=== PATIENT | female | born 1965 | race Hispanic/Latino ===

== ENCOUNTER 2019-11-21 17:45 | Inpatient (IN) | payer MEDICAID ==
[~2019-11-21] VITALS: Ht 162.6 cm; Wt 83.1 kg
[2019-11-21 18:14] LABS: BASOPHILS % (AUTO) 0.5 % (0.0-5.0); EOSINOPHILS % (AUTO) 5.7 % (0.0-8.0); LYMPHOCYTES % (AUTO) 35.6 % (21.0-51.0); MEAN CORPUSCULAR VOLUME 80.2 fL (79-99); MONOCYTES % (AUTO) 6.7 % (3.0-13.0); NEUTROPHILS % (AUTO) 51.2 % (40.0-77.0); PLATELET COUNT (AUTO) 439 K/uL (130-400); RED BLOOD CELL COUNT(AUTO) 2.58 MIL/uL (4.00-5.50); RED CELL DISTRIBUTION WIDTH 16.3 % (11.0-15.5); WHITE BLOOD COUNT (AUTO) 9.3 K/uL (4.8-10.8)
[2019-11-21 18:24] LABS: HEMATOCRIT 20.7 % (36-48)
[2019-11-21 18:29] LABS: CREATININE 6.2 mg/dL (0.5-1.5); POTASSIUM 5.6 mmol/L (3.5-5.1)
[2019-11-21 18:30] LABS: INR 1.06 (0.85-1.15); PARTIAL THROMBOPLASTIN TIME 24.7 SEC (26.3-35.5); PROTHROMBIN TIME 11.4 SEC (9.6-11.6)
[2019-11-21 18:34] LABS: ALBUMIN 3.8 g/dL (3.5-5.0); BILIRUBIN,TOTAL 0.2 mg/dL (0.2-1.0); TOTAL PROTEIN, SERUM 7.8 g/dL (6.0-8.3)
[2019-11-21] MEDS ORDERED: ACETAMINOPHEN 325 MG TAB PO PRN ×2 (20:00)
[2019-11-21] MEDS ORDERED: MORPHINE SULFATE 2 MG/ML 1ML SYG IV PRN (20:00)
[2019-11-21] MEDS ORDERED: ZOLPIDEM TARTRATE 5 MG TAB PO PRN (20:00)
[2019-11-21] MEDS ORDERED: SODIUM BICARB 8.4% 50ML SYRINGE IVP SCH ×2 (20:00→21:00)
[2019-11-21] MEDS ORDERED: BENZONATATE 100 MG CAPSULE PO PRN (20:00)
[2019-11-21] MEDS ORDERED: DEXTROSE 50%-WATER 50 ML DISP.SYRIN IV ONE (20:00)
[2019-11-21] MEDS ORDERED: DIPHENHYDRAMINE HCL 25 MG CAPSULE PO PRN (20:00)
[2019-11-21] MEDS ORDERED: MAG HYDROX/AL HYDROX/SIMETH ES 30 ML SUSP UDCUP PO PRN (20:00)
[2019-11-21] MEDS ORDERED: LIDOCAINE HCL 2% VISCOUS 30 ML, MAG HYDROX/AL HYDROX/SIMETH 30 ML, BELLADONNA-PHENOBARB... PO PRN ×3 (20:00)
[2019-11-21] MEDS ORDERED: MAG HYDROX/AL HYDROX/SIMETH 30 ML, LIDOCAINE HCL 2% VISCOUS 30 ML, DIPHENHYDRAMINE HCL ... PO PRN ×3 (20:00)
[2019-11-21] MEDS ORDERED: LACTULOSE 20 GM/30 ML UDCUP PO PRN (20:00)
[2019-11-21] MEDS ORDERED: DiphenhydrAMINE HCL 50 MG/ML VIAL IV PRN (20:00)
[2019-11-21] MEDS ORDERED: GUAIFENESIN-DM 200/20 MG 10 ML PO PRN (20:00)
[2019-11-21] MEDS ORDERED: NITROGLYCERIN 0.4 MG SL TAB SL PRN (20:00)
[2019-11-21] MEDS ORDERED: MORPHINE SULFATE 4 MG/1ML SYG IV PRN (20:00)
[2019-11-21] MEDS ORDERED: INSULIN HUMULIN R 100 UNIT/ML 3ML ONE (20:01)
[2019-11-21 20:53] LABS: % IRON SATURATION 4.4 % (22-44)
[2019-11-21 20:55] LABS: HEMOGLOBIN A1C 5.7 % (4.0-6.0)
[2019-11-21] MEDS: INSULIN LISPRO 100 UNIT/ML 3ML SQ SCH (21:00)
[2019-11-21] MEDS: SODIUM CHLORIDE 0.9% 1000ML 1,000 ML IV SCH (21:30)
[2019-11-21] MEDS ORDERED: SODIUM BICARB 50MEQ 50ML VIAL ONE (23:28)
[2019-11-22 00:15] VITALS: BP 190/87
[2019-11-22 00:49] LABS: CREATININE 5.8 mg/dL (0.5-1.5); POTASSIUM 5.5 mmol/L (3.5-5.1)
[2019-11-22] MEDS ORDERED: METF-446 PO (03:19)
[2019-11-22] MEDS ORDERED: INSLAN SQ (03:19)
[2019-11-22] MEDS ORDERED: LISI10TA7 PO (03:19)
[2019-11-22] MEDS ORDERED: PRAV20TA PO (03:19)
[2019-11-22] MEDS ORDERED: METO25TA6 PO (03:19)
[2019-11-22] MEDS ORDERED: AMLO10TA4 PO (03:19)
[2019-11-22 04:10] LABS: BASOPHILS % (AUTO) 0.4 % (0.0-5.0); EOSINOPHILS % (AUTO) 4.6 % (0.0-8.0); HEMATOCRIT 25.5 % (36-48); LYMPHOCYTES % (AUTO) 27.9 % (21.0-51.0); MEAN CORPUSCULAR HEMOGLOBIN 26.4 pg (27.0-33.0); MEAN CORPUSCULAR HGB CONC 32.2 g/dL (32.0-36.0); MONOCYTES % (AUTO) 5.7 % (3.0-13.0); NEUTROPHILS % (AUTO) 61.2 % (40.0-77.0); PLATELET COUNT (AUTO) 356 K/uL (130-400); RED BLOOD CELL COUNT(AUTO) 3.11 MIL/uL (4.00-5.50); RED CELL DISTRIBUTION WIDTH 16.5 % (11.0-15.5); WHITE BLOOD COUNT (AUTO) 8.2 K/uL (4.8-10.8)
[2019-11-22 04:30] VITALS: BP 164/67
[2019-11-22 04:32] LABS: ALBUMIN 3.2 g/dL (3.5-5.0); BILIRUBIN,TOTAL 0.3 mg/dL (0.2-1.0); CREATININE 5.8 mg/dL (0.5-1.5); MAGNESIUM 1.9 mg/dL (1.80-2.40); PHOSPHORUS 4.6 mg/dL (2.5-4.9); POTASSIUM 5.7 mmol/L (3.5-5.1); TOTAL PROTEIN, SERUM 6.7 g/dL (6.0-8.3)
[2019-11-22] MEDS: HYDRALAZINE HCL 20 MG/ML VIAL IV PRN ×2 (04:45→18:26)
[2019-11-22] MEDS: SODIUM CHLORIDE 0.9% 1000ML 1,000 ML IV SCH (04:45)
[2019-11-22] MEDS ORDERED: SODIUM POLYSTYRENE SULFONATE 15 GM/60 ML ML PO ONE (05:30)
[2019-11-22] MEDS: INSULIN LISPRO 100 UNIT/ML 3ML SQ SCH ×4 (06:34→20:45)
[2019-11-22 07:30] VITALS: BP 166/66
[2019-11-22] MEDS ORDERED: SODIUM POLYSTYRENE SULFONATE 15 GM/60 ML ML RC SCH (08:00)
[2019-11-22] MEDS ORDERED: PHARMACY COMMUNICATION MISC SCH ×2 (08:30)
[2019-11-22] MEDS: METOPROLOL TARTRATE 25 MG TAB PO SCH ×2 (08:56→21:09)
[2019-11-22] MEDS: FAMOTIDINE/PF 20 MG/2 ML VIAL IV SCH ×2 (08:56→09:31)
[2019-11-22] MEDS: AMLODIPINE BESYLATE 5 MG TAB PO SCH ×2 (08:56→09:31)
[2019-11-22] MEDS ORDERED: SODIUM ZIRCONIUM CYCLOSILICATE 10 GM POWD.PACK PO NR (09:00)
[2019-11-22] MEDS: ONDANSETRON HCL 4 MG/2 ML VIAL IV PRN (09:31)
--- NOTE | 2019-11-22 09:35 | NUR ---
VERIFIED WITH DR JUDGE ABOUT THE CONSULT FOR GI DR. SOLER. HE VERBALIZED TO HOLD OFF TO THAT CONSULT UNTIL WE HAVE THE STOOL SAMPLE FOR OCCULT BLOOD.
[2019-11-22 10:16] LABS: APPEARANCE,URINE Clear (CLEAR); BILIRUBIN,URINE Negative (NEGATIVE); COLOR,URINE Yellow (YELLOW); GLUCOSE, URINE (UA) Negative (NEGATIVE); KETONES,URINE Negative (NEGATIVE); LEUKOCYTE ESTERASE ,URINE Negative (NEGATIVE); NITRATE,URINE Negative (NEGATIVE); OCCULT BLOOD,URINE Negative (NEGATIVE); PROTEIN,URINE 300 mg/dL (NEGATIVE); UROBILINOGEN,URINE 0.2 mg/dL (0.2-1.0)
[2019-11-22 10:30] LABS: BACTERIA,URINE Rare /HPF (None Seen); RBC,URINE 0-1 /HPF (0-1); SQUAMOUS EPITHELIAL CELL,UR 0-2 /HPF (0-2); WBC,URINE 0-1 /HPF (0-1)
[2019-11-22 12:30] LABS: HEMATOCRIT 26.3 % (36-48)
--- NOTE | 2019-11-22 13:24 | NUR ---
cm note met with patient and states resides at home with son and daughter, uses cane for ambulation. has provider 28hrs weekly, spouse assists as needed. dc plan is back to home. no dc needs. Addendum: 11/22/19 at 1328 by KATHY DOWELL CM Amended: Links added.
[2019-11-22] MEDS ORDERED: SODIUM BICARBONATE 650 MG TAB PO SCH (15:05)
[2019-11-22] MEDS ORDERED: METHYLPREDNISOLONE SOD SUCC 40MG/ML 1ML IVP SCH (15:50)
[2019-11-22 16:00] VITALS: BP 179/76
[2019-11-22] MEDS ORDERED: INSULIN HUMULIN R 100 UNIT/ML 3ML SQ SCH (19:15)
[2019-11-22] MEDS ORDERED: CALCIUM GLUCONATE 1 GM/10 ML VIAL IV SCH (19:15)
[2019-11-22 19:35] VITALS: BP 162/72
[2019-11-22] MEDS ORDERED: ALBUTEROL SULFATE 0.042% 1.25 MG/3 ML INH IH ONE (20:15)
[2019-11-22] MEDS ORDERED: ALBUTEROL SULFATE 0.083% 2.5 MG/3 ML INH IH ONE ×2 (20:27→21:30)
[2019-11-22] MEDS ORDERED: CALCIUM GLUCONATE 1 GM in SODIUM CHLORIDE 0.9% 100 ML IV ONE (20:30)
[2019-11-22] MEDS ORDERED: DEXTROSE 50%-WATER 50 ML DISP.SYRIN IV ONE (20:46)
[2019-11-22] MEDS: SODIUM BICARBONATE 650 MG TAB PO SCH ×2 (20:58→21:00)
[2019-11-22] MEDS ORDERED: PRAVASTATIN SODIUM 20 MG PO SCH (21:00)
[2019-11-22] MEDS: SIMVASTATIN 20 MG TABLET PO SCH (21:09)
[2019-11-22] MEDS ORDERED: INSULIN HUMULIN R 100 UNIT/ML 3ML SQ ONE (22:05)
[2019-11-22 23:58] VITALS: BP 132/54
[2019-11-23 03:47] VITALS: BP 136/54
[2019-11-23] MEDS: INSULIN LISPRO 100 UNIT/ML 3ML SQ SCH ×4 (05:45→20:27)
[2019-11-23 06:14] LABS: BASOPHILS % (AUTO) 0.5 % (0.0-5.0); EOSINOPHILS % (AUTO) 3.1 % (0.0-8.0); HEMATOCRIT 25.1 % (36-48); MEAN CORPUSCULAR HEMOGLOBIN 25.8 pg (27.0-33.0); MEAN CORPUSCULAR HGB CONC 31.1 g/dL (32.0-36.0); MEAN CORPUSCULAR VOLUME 83.1 fL (79-99); MONOCYTES % (AUTO) 6.7 % (3.0-13.0); NEUTROPHILS % (AUTO) 65.2 % (40.0-77.0); PLATELET COUNT (AUTO) 365 K/uL (130-400); RED BLOOD CELL COUNT(AUTO) 3.02 MIL/uL (4.00-5.50); RED CELL DISTRIBUTION WIDTH 16.7 % (11.0-15.5); WHITE BLOOD COUNT (AUTO) 7.3 K/uL (4.8-10.8)
[2019-11-23 06:41] LABS: % IRON SATURATION 9.4 % (22-44)
[2019-11-23 06:47] LABS: ALBUMIN 3.1 g/dL (3.5-5.0); BILIRUBIN,TOTAL 0.2 mg/dL (0.2-1.0); CREATININE 5.7 mg/dL (0.5-1.5); MAGNESIUM 1.6 mg/dL (1.80-2.40); PHOSPHORUS 4.5 mg/dL (2.5-4.9); POTASSIUM 5.3 mmol/L (3.5-5.1); TOTAL PROTEIN, SERUM 6.4 g/dL (6.0-8.3)
[2019-11-23 08:00] VITALS: BP 149/52
[2019-11-23] MEDS: FOLIC ACID/VITAMIN B COMP W-C 1 CAP TAB PO SCH (08:53)
[2019-11-23] MEDS: SODIUM BICARBONATE 650 MG TAB PO SCH ×2 (08:53→20:33)
[2019-11-23] MEDS: METOPROLOL TARTRATE 25 MG TAB PO SCH ×2 (08:54→20:33)
[2019-11-23] MEDS: AMLODIPINE BESYLATE 5 MG TAB PO SCH (08:55)
[2019-11-23] MEDS: FAMOTIDINE/PF 20 MG/2 ML VIAL IV SCH (09:46)
[2019-11-23] MEDS ORDERED: PHARMACY COMMUNICATION MISC SCH (10:15)
[2019-11-23] MEDS ORDERED: SODIUM ZIRCONIUM CYCLOSILICATE 10 GM POWD.PACK PO SCH (10:30)
[2019-11-23 12:00] VITALS: BP 169/72
[2019-11-23] MEDS ORDERED: EPOETIN ALFA 10,000 UNIT/ML VIAL SQ SCH (12:30)
[2019-11-23] MEDS: IRON SUCROSE COMPLEX 100 MG in SODIUM CHLORIDE 0.9% 50 ML IV SCH (12:32)
[2019-11-23 16:00] VITALS: BP 182/82
[2019-11-23] MEDS: HYDRALAZINE HCL 20 MG/ML VIAL IV PRN ×2 (17:44→23:40)
[2019-11-23 19:25] VITALS: BP 185/80
[2019-11-23] MEDS: SIMVASTATIN 20 MG TABLET PO SCH (20:33)
[2019-11-23] MEDS: SODIUM ZIRCONIUM CYCLOSILICATE 10 GM POWD.PACK PO SCH (20:33)
[2019-11-23 23:26] VITALS: BP 179/86
[2019-11-24] VITALS (8 sets, daily range): BP systolic 118–184; BP diastolic 61–82
[2019-11-24] MEDS: HYDRALAZINE HCL 20 MG/ML VIAL IV PRN (05:29)
[2019-11-24] MEDS: INSULIN LISPRO 100 UNIT/ML 3ML SQ SCH ×4 (05:30→19:56)
[2019-11-24 06:04] LABS: BASOPHILS % (AUTO) 0.4 % (0.0-5.0); EOSINOPHILS % (AUTO) 5.9 % (0.0-8.0); LYMPHOCYTES % (AUTO) 21.4 % (21.0-51.0); MEAN CORPUSCULAR HEMOGLOBIN 26.1 pg (27.0-33.0); MEAN CORPUSCULAR HGB CONC 31.6 g/dL (32.0-36.0); MEAN CORPUSCULAR VOLUME 82.5 fL (79-99); MONOCYTES % (AUTO) 7.7 % (3.0-13.0); PLATELET COUNT (AUTO) 344 K/uL (130-400); RED BLOOD CELL COUNT(AUTO) 3.03 MIL/uL (4.00-5.50); RED CELL DISTRIBUTION WIDTH 17.1 % (11.0-15.5); WHITE BLOOD COUNT (AUTO) 7.8 K/uL (4.8-10.8)
[2019-11-24 06:29] LABS: ALBUMIN 3.1 g/dL (3.5-5.0); BILIRUBIN,TOTAL 0.2 mg/dL (0.2-1.0); CREATININE 5.5 mg/dL (0.5-1.5); MAGNESIUM 1.6 mg/dL (1.80-2.40); PHOSPHORUS 4.4 mg/dL (2.5-4.9); TOTAL PROTEIN, SERUM 6.6 g/dL (6.0-8.3)
[2019-11-24] MEDS: SODIUM BICARBONATE 650 MG TAB PO SCH ×2 (08:37→20:10)
[2019-11-24] MEDS: METOPROLOL TARTRATE 25 MG TAB PO SCH ×2 (08:37→20:10)
[2019-11-24] MEDS: FOLIC ACID/VITAMIN B COMP W-C 1 CAP TAB PO SCH (08:37)
[2019-11-24] MEDS: FAMOTIDINE/PF 20 MG/2 ML VIAL IV SCH (08:38)
[2019-11-24] MEDS: AMLODIPINE BESYLATE 5 MG TAB PO SCH (08:38)
[2019-11-24] MEDS: IRON SUCROSE COMPLEX 100 MG in SODIUM CHLORIDE 0.9% 50 ML IV SCH (09:00)
[2019-11-24] MEDS: SODIUM ZIRCONIUM CYCLOSILICATE 10 GM POWD.PACK PO SCH ×3 (09:36→20:09)
[2019-11-24] MEDS: ONDANSETRON HCL 4 MG/2 ML VIAL IV PRN (09:40)
[2019-11-24] MEDS ORDERED: COMPOUND IV MISC 1 EACH IVSOLN MISC PRN (12:15)
--- NOTE | 2019-11-24 15:00 | NUR ---
RECEIVED REPORT FROM ANDREW SAAB PER DR GREGORIO BETANCOURT TOMORROW BY IR THEN DIALYSIS TO FOLLOW . ORDERS PLACED . PER PATIENT MD EXPLAINED ON PROCEDURE AND ORDER FOR DIALYSIS TOMORROW AFTER PERMCATH PLACEMENT . PER PATIENT SIGNS CONSENT DUE TO HER UNABLE TO SEE WELL . WITH WITNESS WITH ANDREW MEAD PHONE CONSENT FOR BOTH PERMCATH AND DIALYSIS VIA PHONE WITH .
[2019-11-24] MEDS: SIMVASTATIN 20 MG TABLET PO SCH (20:10)
[2019-11-25] VITALS (13 sets, daily range): BP systolic 152–201; BP diastolic 54–91
[2019-11-25] MEDS: HYDRALAZINE HCL 20 MG/ML VIAL IV PRN (04:40)
[2019-11-25 05:59] LABS: HEMATOCRIT 25.7 % (36-48); MEAN CORPUSCULAR HEMOGLOBIN 25.7 pg (27.0-33.0); MEAN CORPUSCULAR HGB CONC 30.7 g/dL (32.0-36.0); MEAN CORPUSCULAR VOLUME 83.7 fL (79-99); PLATELET COUNT (AUTO) 343 K/uL (130-400); RED BLOOD CELL COUNT(AUTO) 3.07 MIL/uL (4.00-5.50); RED CELL DISTRIBUTION WIDTH 17.2 % (11.0-15.5); WHITE BLOOD COUNT (AUTO) 7.5 K/uL (4.8-10.8)
[2019-11-25 06:14] LABS: INR 1.12 (0.85-1.15); PARTIAL THROMBOPLASTIN TIME 27.6 SEC (26.3-35.5)
[2019-11-25 06:17] LABS: CREATININE 5.6 mg/dL (0.5-1.5); PHOSPHORUS 5.1 mg/dL (2.5-4.9); POTASSIUM 4.5 mmol/L (3.5-5.1)
[2019-11-25] MEDS: INSULIN LISPRO 100 UNIT/ML 3ML SQ SCH ×4 (06:36→20:12)
[2019-11-25 07:53] LABS: EOSINOPHILS % (MANUAL) 5 % (1-6); LYMPHOCYTES % (MANUAL) 17 % (22-44); MAN.DIFF COMMENT-IMPRESSION MANUAL DIFFERENTIAL; MONOCYTES % (MANUAL) 8 % (2-9); PLATELET MORPHOLOGY COMMENT ADEQUATE; SEGMENTED NEUTROPHILS % 70 % (40-70)
[2019-11-25] MEDS: METOPROLOL TARTRATE 25 MG TAB PO SCH ×3 (09:00→22:48)
[2019-11-25] MEDS: SODIUM BICARBONATE 650 MG TAB PO SCH ×2 (09:00→21:39)
[2019-11-25] MEDS: AMLODIPINE BESYLATE 5 MG TAB PO SCH (09:00)
[2019-11-25] MEDS: FOLIC ACID/VITAMIN B COMP W-C 1 CAP TAB PO SCH (09:00)
[2019-11-25] MEDS: IRON SUCROSE COMPLEX 100 MG in SODIUM CHLORIDE 0.9% 50 ML IV SCH (09:00)
[2019-11-25] MEDS: FAMOTIDINE/PF 20 MG/2 ML VIAL IV SCH (09:00)
[2019-11-25] MEDS ORDERED: PANTOPRAZOLE SODIUM 40 MG TABLET.DR PO SCH (13:15)
[2019-11-25] MEDS ORDERED: LIDOCAINE HCL 1% MDV 50ML VIAL ONE (13:25)
--- NOTE | 2019-11-25 13:48 | NUR ---
PT LEFT TO FELT [facility]OOKER PERMCATH
--- NOTE | 2019-11-25 14:26 | NUR ---
LYUDMILA PT BACK FROM [facility] A/A X 3 VS, 168/83, 79HR, 12 RESP, SP02 94 % RM,98.1 TEMP, CATH IS ON THE RIGHT SIDE OF CHEST, HAS A PINK TING TO DRESSING QUARTER SIZE, NO PAIN AT THIS TIME. DIALYSIS CALLED TO ALSO DIALYSIS PATIENT.
--- NOTE | 2019-11-25 14:40 | NUR ---
ASSESSMENT 15 X2 PT LAYING IN BED QUIETLY, NO C/O AT THIS TIME V/S ARE STABLE, DRESSING INTACT WITH NO CHANGE TO DRAINAGE,(MINIMAL).
--- NOTE | 2019-11-25 15:00 | NUR ---
ASSESSMENT NOTE 15 MIN X 3 PT. IS A/A X 3, NO PAIN, VS STABLE, DRESSING HAS MODERATE SEOUSANGOUS DRAINAGE TO SITE, WILL CONTINUE TO MONITOR.
--- NOTE | 2019-11-25 15:15 | NUR ---
ASSESSMENT 15 MIN X 4 NO CHANGE TO DRESSING, STILL MODERATE DRAINAGE, WILL CONTINUE TO MONITOR.
--- NOTE | 2019-11-25 15:45 | NUR ---
ASSESSMENT 30 MIN X 1 PT SITTING UP TALKING ON THE PHONE WITH FAMILY. DRESSING INTACT WITH SOME DRAINAGE, SENSIGENOUS, WILL CONTINUE TO MONITOR
--- NOTE | 2019-11-25 16:15 | NUR ---
ASSESSMENT 30 MIN X 2 PT SITTING UP IN BED EATING LUNCH, NO COMPLICATION, VS STABLE, DRESSING INTACT.
--- NOTE | 2019-11-25 17:15 | NUR ---
ASSESSMENT NOTE 1HR PT HAS NO COMPLAINTS OF PAIN, OR ANY OTHER COMPLICATION WITH PERMACATH, WAITING ON DIALYSIS, WILL CONTINUE TO MONITOR.
--- NOTE | 2019-11-25 18:03 | NUR ---
DIALYSIS PT IS GETTING READY TO START DIALYSIS MORNING MEDS WERE NOT GIVEN IN THE AM.
[2019-11-25] MEDS: SIMVASTATIN 20 MG TABLET PO SCH (21:39)
[2019-11-25] MEDS ORDERED: ALPRAZOLAM 0.25 MG TABLET ONE (23:39)
[2019-11-25] MEDS ORDERED: ALPRAZOLAM 0.25 MG TABLET PO ONE (23:45)
[2019-11-26] VITALS (7 sets, daily range): BP systolic 134–171; BP diastolic 48–69
[2019-11-26 04:07] LABS: HEMATOCRIT 24.5 % (36-48); MEAN CORPUSCULAR HEMOGLOBIN 26.1 pg (27.0-33.0); MEAN CORPUSCULAR HGB CONC 31.8 g/dL (32.0-36.0); MEAN CORPUSCULAR VOLUME 81.9 fL (79-99); RED BLOOD CELL COUNT(AUTO) 2.99 MIL/uL (4.00-5.50); RED CELL DISTRIBUTION WIDTH 16.6 % (11.0-15.5); WHITE BLOOD COUNT (AUTO) 7.3 K/uL (4.8-10.8)
[2019-11-26 04:21] LABS: CREATININE 3.8 mg/dL (0.5-1.5); MAGNESIUM 1.6 mg/dL (1.80-2.40); PHOSPHORUS 3.9 mg/dL (2.5-4.9); POTASSIUM 3.6 mmol/L (3.5-5.1)
[2019-11-26] MEDS: INSULIN LISPRO 100 UNIT/ML 3ML SQ SCH ×4 (04:42→20:48)
[2019-11-26] MEDS: PANTOPRAZOLE SODIUM 40 MG TABLET.DR PO SCH (05:39)
[2019-11-26] MEDS: IRON SUCROSE COMPLEX 100 MG in SODIUM CHLORIDE 0.9% 50 ML IV SCH (09:00)
--- NOTE | 2019-11-26 09:08 | NUR ---
DIALYSIS PT STARTED DIALYSIS 2ND DAY. YESTERDAY 11-25-19- THEY TOOK OUT 1.4 LITERS.
[2019-11-26] MEDS ORDERED: HEPARIN SODIUM 5000UNIT/ML 1ML VIAL ONE ×2 (11:31→11:32)
--- NOTE | 2019-11-26 12:03 | NUR ---
HD FINISHED IT'S THE 2ND DAY OF HD 2 LITERS REMOVED IN [address] PERKINS NOT SURE IF SHE WILL NEED HD TOMORROW.
[2019-11-26] MEDS: METOPROLOL TARTRATE 25 MG TAB PO SCH ×2 (12:14→20:48)
[2019-11-26] MEDS: FOLIC ACID/VITAMIN B COMP W-C 1 CAP TAB PO SCH (12:14)
[2019-11-26] MEDS: FAMOTIDINE/PF 20 MG/2 ML VIAL IV SCH (12:14)
[2019-11-26] MEDS: AMLODIPINE BESYLATE 5 MG TAB PO SCH (12:14)
[2019-11-26] MEDS: LISINOPRIL 20 MG TABLET PO SCH (12:16)
[2019-11-26 17:53] LABS: CHOLESTEROL 119 mg/dL (<200); HDL CHOLESTEROL 77 mg/dL (35-85); LDL DIRECT 60 mg/dL (0-99); TRIGLYCERIDES 61 mg/dL (30-200)
[2019-11-26] MEDS: SIMVASTATIN 20 MG TABLET PO SCH (20:48)
[2019-11-27] VITALS (23 sets, daily range): BP systolic 108–173; BP diastolic 39–75
[2019-11-27 05:32] LABS: HEMATOCRIT 28.8 % (36-48); MEAN CORPUSCULAR HEMOGLOBIN 25.9 pg (27.0-33.0); MEAN CORPUSCULAR HGB CONC 31.6 g/dL (32.0-36.0); MEAN CORPUSCULAR VOLUME 82.1 fL (79-99); RED BLOOD CELL COUNT(AUTO) 3.51 MIL/uL (4.00-5.50); RED CELL DISTRIBUTION WIDTH 16.2 % (11.0-15.5); WHITE BLOOD COUNT (AUTO) 7.6 K/uL (4.8-10.8)
[2019-11-27 05:47] LABS: CREATININE 3.3 mg/dL (0.5-1.5); POTASSIUM 3.4 mmol/L (3.5-5.1)
[2019-11-27 05:50] LABS: INR 1.1 (0.85-1.15); PARTIAL THROMBOPLASTIN TIME 27.5 SEC (26.3-35.5); PROTHROMBIN TIME 11.8 SEC (9.6-11.6)
[2019-11-27] MEDS ORDERED: ALPRAZOLAM 0.25 MG TABLET ONE (05:52)
[2019-11-27] MEDS: INSULIN LISPRO 100 UNIT/ML 3ML SQ SCH ×4 (05:54→20:45)
[2019-11-27] MEDS: PANTOPRAZOLE SODIUM 40 MG TABLET.DR PO SCH (05:54)
[2019-11-27] MEDS ORDERED: ALPRAZOLAM 0.25 MG TABLET PO ONE (06:00)
[2019-11-27] MEDS: HYDRALAZINE HCL 20 MG/ML VIAL IV PRN (06:41)
[2019-11-27 07:18] LABS: HEPATITIS A ANTIBODY IGM Negative (Negative); HEPATITIS B CORE IGM Negative (Negative); HEPATITIS Bs ANTIGEN SCREEN P Negative (Negative)
[2019-11-27] MEDS: LISINOPRIL 20 MG TABLET PO SCH (08:41)
[2019-11-27] MEDS: FOLIC ACID/VITAMIN B COMP W-C 1 CAP TAB PO SCH (08:41)
[2019-11-27] MEDS: AMLODIPINE BESYLATE 5 MG TAB PO SCH (08:42)
[2019-11-27] MEDS: METOPROLOL TARTRATE 25 MG TAB PO SCH ×2 (08:42→21:00)
[2019-11-27] MEDS ORDERED: SODIUM CHLORIDE 0.9% 1000ML 1,000 ML IV ONE (08:56)
[2019-11-27] MEDS: CLINDAMYCIN 900 MG/D5% WATER 50 ML IV SCH ×2 (08:58→11:00)
[2019-11-27] MEDS: IRON SUCROSE COMPLEX 100 MG in SODIUM CHLORIDE 0.9% 50 ML IV SCH (09:00)
[2019-11-27] MEDS ORDERED: CLINDAMYCIN PHOSPHATE 150 MG/ML 6ML VIAL ONE (09:14)
--- NOTE | 2019-11-27 09:57 | NUR ---
OUT PATIENT DIALYSIS REFERRAL SENT CHART REVIEWED YESTERDAY, TX# 2, NO ORDER FOR OP HD, NO NEW PT HD LABS DRAWN FOR FIRST EVER HD. CHAIR REVIEWED, LABS COLLECTED FROM CHART , OTHER LABS ORDERED- STILL PENDING HEPATITIS B CORE ANTIBODY TO BE RESULTED. SENT PKT - MISSING ONLY THIRD TX, AVF OP NOTE, AND MED LIST TODAY HOPING FOR [employer] AND SET UP- IF ONL TTS, WILL NEED TO START NEXT MONDAY, STAY TILL MONDAY, IF SCHEDULE WILL BE MWF, MAY BE ABLE TO DC TOMORROW IF ALL FINANCIAL TAKEN CARE OF. WILL UPDATE PRIMARY RN.
[2019-11-27] MEDS ORDERED: SUCCINYLCHOLINE 200MG/10ML SYR ONE (10:50)
[2019-11-27] MEDS ORDERED: PROPOFOL 10 MG/ML 20ML VIAL IV ONE (10:50)
[2019-11-27] MEDS ORDERED: FENTANYL CITRATE PF 50 MCG/1 ML 2ML VIAL ONE (10:50)
[2019-11-27] MEDS ORDERED: DEXAMETHASONE SOD PHOSPHATE 10MG/ML 1ML VIAL ONE (10:50)
[2019-11-27] MEDS ORDERED: MIDAZOLAM HCL 1 MG/ML 2ML VIAL ONE (10:50)
[2019-11-27] MEDS ORDERED: LIDOCAINE PF 2% 5ML ABBOJECT ONE (10:50)
[2019-11-27] MEDS ORDERED: ONDANSETRON HCL 4 MG/2 ML VIAL ONE (10:50)
--- NOTE | 2019-11-27 10:57 | NUR ---
FAMILY COMMUNICATION DAILY CALL- PT IS IN SURGERY AT PRESENT TIME, NO CHART PHYSICALLY AVAILABLE AT NURSES STATION. I REVIEWED CHART AND SPOKE TO PRIMARY NURSE. PT CLIFTON GAMBOA NOTIFIED AND GIVEN STATUS UPDATE
[2019-11-27] MEDS ORDERED: ALBUMIN (HUMAN) 25% 100 ML IV ONE (11:06)
[2019-11-27] MEDS ORDERED: TRAMADOL HCL 50 MG TABLET PO PRN ×2 (11:30)
[2019-11-27] MEDS ORDERED: HEPARIN SODIUM 1000UNIT/ML 10ML VIAL ONE (11:45)
--- NOTE | 2019-11-27 11:58 | NUR ---
TENTATIVE CHAIR TIME MWF THIRD SHIFT- POSS ADMIT TUESDAY 11/28?? CALL REC'D FROM BALDO AT [facility]- STATES POSS CHAIR TIME MWF THIRD SHIFT - WILL POST TO CHART STILL PENDING HEB B CORE ANTIBODY- NOT ORDERED OR DRAWN WITH FIRST HD BUT --DRAWN YESTERDAY, STILL PENDING. WILL FOLLOW UP W/ LAB IN AM AND SEND TO [facility] WHEN AVAILABLE. WILL TOUCH BASE WITH HD CLINIC WELL. CALL TO DR. PERKINS - ANSWERING SERVICE Addendum: 11/27/19 at 1204 by YING MORAES RN CM Amended: Links added.
[2019-11-27] MEDS ORDERED: MEPERIDINE-PF 25 MG/ML SYG ONE (12:20)
[2019-11-27] MEDS: FAMOTIDINE/PF 20 MG/2 ML VIAL IV SCH (13:27)
[2019-11-27] MEDS: LISINOPRIL 40 MG TABLET PO SCH (13:28)
[2019-11-27] MEDS: SIMVASTATIN 20 MG TABLET PO SCH (21:00)
[2019-11-27] MEDS ORDERED: HEPARIN SODIUM 5000UNIT/ML 1ML VIAL ONE (21:56)
[2019-11-28] VITALS: BP 150/61
[2019-11-28 04:00] VITALS: BP 138/54
[2019-11-28 04:08] LABS: BASOPHILS % (AUTO) 0.5 % (0.0-5.0); EOSINOPHILS % (AUTO) 2.2 % (0.0-8.0); HEMATOCRIT 27.6 % (36-48); LYMPHOCYTES % (AUTO) 14.7 % (21.0-51.0); MEAN CORPUSCULAR HGB CONC 31.2 g/dL (32.0-36.0); MEAN CORPUSCULAR VOLUME 83.4 fL (79-99); MONOCYTES % (AUTO) 7.5 % (3.0-13.0); NEUTROPHILS % (AUTO) 74.9 % (40.0-77.0); PLATELET COUNT (AUTO) 280 K/uL (130-400); RED BLOOD CELL COUNT(AUTO) 3.31 MIL/uL (4.00-5.50); RED CELL DISTRIBUTION WIDTH 16.5 % (11.0-15.5); WHITE BLOOD COUNT (AUTO) 8.2 K/uL (4.8-10.8)
[2019-11-28 04:34] LABS: ALBUMIN 3.5 g/dL (3.5-5.0); BILIRUBIN,TOTAL 0.4 mg/dL (0.2-1.0); CREATININE 2.3 mg/dL (0.5-1.5); POTASSIUM 3.8 mmol/L (3.5-5.1); TOTAL PROTEIN, SERUM 7.1 g/dL (6.0-8.3)
[2019-11-28] MEDS: PANTOPRAZOLE SODIUM 40 MG TABLET.DR PO SCH ×2 (04:47→06:00)
[2019-11-28] MEDS: INSULIN LISPRO 100 UNIT/ML 3ML SQ SCH ×3 (04:48→16:30)
[2019-11-28 07:48] VITALS: BP 162/72
--- NOTE | 2019-11-28 08:00 | NUR ---
AM SHIFT ASSESSMENT, POSSIBLE DISCHARGE TODAY. WAITING ON DIALYSIS CHAIR AND CM WILL ADVISE ON DC.NO C/O AT THIS TIME,
[2019-11-28] MEDS: FOLIC ACID/VITAMIN B COMP W-C 1 CAP TAB PO SCH (08:45)
[2019-11-28] MEDS: FAMOTIDINE/PF 20 MG/2 ML VIAL IV SCH (08:45)
[2019-11-28] MEDS: AMLODIPINE BESYLATE 5 MG TAB PO SCH (08:46)
[2019-11-28] MEDS: METOPROLOL TARTRATE 25 MG TAB PO SCH (08:47)
[2019-11-28] MEDS: LISINOPRIL 40 MG TABLET PO SCH (08:47)
[2019-11-28] MEDS: IRON SUCROSE COMPLEX 100 MG in SODIUM CHLORIDE 0.9% 50 ML IV SCH (08:48)
--- NOTE | 2019-11-28 10:00 | NUR ---
PT. 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 EYE AND STATES ONLY SEES SHADOWS WITH RT.DOES REQUIRE ASST.TO MOVE ABOUT SHE IS NOT FAMILIAR WITH ROOM ENVIRONMENT.
[2019-11-28 11:38] VITALS: BP 156/62
--- NOTE | 2019-11-28 13:09 | NUR ---
FOLLOWING UP ON LABS CALL TO VANESSA IN LAB RE HEP B TOTAL, CALLT Rick JARET- FOLLOW UP ON REFERRAL, JUST WAITING ON LAB TEST, DAUGHTER CALLED- SPOKE TO DTR AND PATIENT AT BEDSIDE RE REFERRAL- HOPE TO DC TODAY LATE IF HAVE CONFIRMED HD SEAT- IF NOT, HD TOMORROW AND DC. FAMILY AND PATIENT UNDERSTAND HAVE REACHED OUT TO DR. PERKINS TO CALL ME. NO CALL, Addendum: 11/28/19 at 1312 by YING MORAES RN Amended: Links added.
--- NOTE | 2019-11-28 15:51 | NUR ---
RDSCREEN - LOS X 7 Pt admitted with hyperkalemia. Renal Dialysis diet order in place. No report of GI distress. Pt s/p hemodialysis. Monitored labs: Cl 100, Cr 2.3, GFR 24, Ca 8.3. Obesity Class I. Recommend continue Renal Dialysis diet order RD to follow up with Renal Dialysis Nutrition Education RD to continue to monitor. Please notify as additional nutrition concerns arise. Thank you. Addendum: 11/28/19 at [address] Amended: Links added.
--- NOTE | 2019-11-28 16:14 | NUR ---
DR. PERKINS CALLED IN WITH DISCHARGE ORDERS. PT. ALREADY HAS A HD CHAIR AT [facility] IN [place].
--- NOTE | 2019-11-28 16:32 | NUR ---
WAITING ON DR. PEREIRA TO RETURN CALL WITH DC ORDERS.
[2019-11-28 16:47] VITALS: BP 159/61
== END 2019-11-28 20:00 | disposition home or self-care (01) | DRG 444 ==
LOC: EDH 17:45 → EDHIP 17:46 → 4BH 23:54
PROVIDERS: ADMIT Hospitalist; ATTEND Hospitalist
PROC: 30233N1 Transfusion of Nonautologous Red Blood Cells into Peripheral Vein, Percutaneous Approach (ICD-10-PCS; 2019-11-21)
PROC: 5A1D70Z Performance of Urinary Filtration, Intermittent, Less than 6 Hours Per Day (ICD-10-PCS; 2019-11-25)
PROC: 0JH63XZ Insertion of Tunneled Vascular Access Device into Chest Subcutaneous Tissue and Fascia, Percutaneous Approach (ICD-10-PCS; 2019-11-25)
PROC: 02H633Z Insertion of Infusion Device into Right Atrium, Percutaneous Approach (ICD-10-PCS; 2019-11-25)
PROC: B5181ZA Fluoroscopy of Superior Vena Cava using Low Osmolar Contrast, Guidance (ICD-10-PCS; 2019-11-25)
PROC: B548ZZA Ultrasonography of Superior Vena Cava, Guidance (ICD-10-PCS; 2019-11-25)
PROC: 5A1D70Z Performance of Urinary Filtration, Intermittent, Less than 6 Hours Per Day (ICD-10-PCS; 2019-11-26)
PROC: 5A1D70Z Performance of Urinary Filtration, Intermittent, Less than 6 Hours Per Day (ICD-10-PCS; 2019-11-27)
PROC: 03180ZD Bypass Left Brachial Artery to Upper Arm Vein, Open Approach (ICD-10-PCS; principal; 2019-11-27 10:51)
DX: I12.0 Hypertensive chronic kidney disease with stage 5 chronic kidney disease or end stage renal disease (principal); N17.9 Acute kidney failure, unspecified; N18.6 End stage renal disease; E87.5 Hyperkalemia; I16.0 Hypertensive urgency; E87.2 Acidosis; E78.00 Pure hypercholesterolemia, unspecified; E78.5 Hyperlipidemia, unspecified; E11.22 Type 2 diabetes mellitus with diabetic chronic kidney disease; H54.62 Unqualified visual loss, left eye, normal vision right eye; Z79.899 Other long term (current) drug therapy; Z91.15 Patient's noncompliance with renal dialysis; Z99.2 Dependence on renal dialysis; Z88.0 Allergy status to penicillin; D63.1 Anemia in chronic kidney disease
CPT/HCPCS: 36415; 36430; 36558; 71045; 76770; 77001; 80048; 80053; 80061; 80074; 81001; 82270; 82550; 82728; 82948; 83036; 83540; 83550; 83735; 84100; 84132; 84484; 85014; 85018; 85025; 85027; 85610; 85730; 86701; 86704; 86706; 86850; 86900; 86901; 86923; 87390; 90935; 93005; 93971; 94644; C1750; G0378; J0330; J0360; J0610; J0885; J1100; J1644; J1756; J1815; J2001; J2175; J2250; J2405; J2704; J3010; J3490; J7030; J7040; J7070; P9016; P9047

== ENCOUNTER 2020-01-30 08:56 | Day surgery (SDC) | payer MEDICAID ==
[2020-01-28 12:00] VITALS: BP 157/71
[2020-01-28 13:00] LABS: BASOPHILS % (AUTO) 0.7 % (0.0-5.0); EOSINOPHILS % (AUTO) 4.1 % (0.0-8.0); HEMATOCRIT 33.9 % (36-48); LYMPHOCYTES % (AUTO) 40.1 % (21.0-51.0); MEAN CORPUSCULAR HEMOGLOBIN 28.7 pg (27.0-33.0); MEAN CORPUSCULAR HGB CONC 30.7 g/dL (32.0-36.0); MEAN CORPUSCULAR VOLUME 93.4 fL (79-99); MONOCYTES % (AUTO) 6.7 % (3.0-13.0); NEUTROPHILS % (AUTO) 48.3 % (40.0-77.0); PLATELET COUNT (AUTO) 362 K/uL (130-400); RED BLOOD CELL COUNT(AUTO) 3.63 MIL/uL (4.00-5.50); RED CELL DISTRIBUTION WIDTH 16.5 % (11.0-15.5); WHITE BLOOD COUNT (AUTO) 7.6 K/uL (4.8-10.8)
[2020-01-28 13:09] LABS: INR 1.09 (0.85-1.15); PARTIAL THROMBOPLASTIN TIME 24.9 SEC (26.3-35.5); PROTHROMBIN TIME 11.7 SEC (9.6-11.6)
[2020-01-28 13:12] LABS: ALBUMIN 3.8 g/dL (3.5-5.0); BILIRUBIN,TOTAL 0.3 mg/dL (0.2-1.0); POTASSIUM 4.1 mmol/L (3.5-5.1); TOTAL PROTEIN, SERUM 7.9 g/dL (6.0-8.3)
[2020-01-30] VITALS (13 sets, daily range): BP systolic 180–203; BP diastolic 67–102
[~2020-01-30] VITALS: Ht 157.5 cm; Wt 78.3 kg
[~2020-01-30 08:56] MED LIST: AMLO10TA4 PO; CLINDAMYCIN 900 MG/D5% WATER 50 ML IV SCH; INSLAN SQ; LISI10TA7 PO; METO25TA6 PO; PRAV20TA PO
[2020-01-30] MEDS ORDERED: PAPAVERINE HCL 30 MG/ML 2ML VIAL ONE (10:28)
[2020-01-30] MEDS ORDERED: SODIUM CHLORIDE 0.9% 1000ML 1,000 ML IV ONE (10:59)
[2020-01-30] MEDS ORDERED: LIDOCAINE PF 2% 5ML ABBOJECT ONE ×2 (11:12→11:14)
[2020-01-30] MEDS ORDERED: DEXAMETHASONE SOD PHOSPHATE 10MG/ML 1ML VIAL ONE (11:12)
[2020-01-30] MEDS ORDERED: SUCCINYLCHOLINE CHLORIDE 20 MG/ML 10 ML VIAL ONE ×2 (11:12→11:14)
[2020-01-30] MEDS ORDERED: ROCURONIUM 10MG/1ML SYR 10 MG/ML ML ONE (11:13)
[2020-01-30] MEDS ORDERED: ONDANSETRON HCL 4 MG/2 ML VIAL ONE (11:13)
[2020-01-30] MEDS ORDERED: GLYCOPYRROLATE 1 MG/5 ML SYRINGE ONE (11:13)
[2020-01-30] MEDS ORDERED: NEOSTIGMINE 5MG/5ML SYR IV ONE (11:13)
[2020-01-30] MEDS ORDERED: FENTANYL CITRATE PF 50 MCG/1 ML 2ML VIAL ONE (11:13)
[2020-01-30] MEDS ORDERED: PROPOFOL 10 MG/ML 20ML VIAL IV ONE (11:13)
[2020-01-30] MEDS ORDERED: HEPARIN SODIUM 1000UNIT/ML 10ML VIAL ONE (12:17)
[2020-01-30] MEDS ORDERED: PROTAMINE SULFATE 10 MG/ML 5 ML VIAL ONE (12:17)
[2020-01-30] MEDS ORDERED: VANCOMYCIN HCL 1 GM VIAL IRRIG ONE (12:28)
[2020-01-30] MEDS ORDERED: BUPIVACAINE/PF 0.5% 30ML VIAL ONE (13:18)
[2020-01-30] MEDS ORDERED: LIDOCAINE HCL 1% 20 ML VIAL ONE (13:18)
[2020-01-30] MEDS ORDERED: ENALAPRILAT DIHYDRATE 1.25MG/ML 1ML VIAL IV ONE (14:01)
[2020-01-30] MEDS ORDERED: MEPERIDINE-PF 25 MG/ML SYG ONE (14:25)
--- NOTE | 2020-01-30 14:25 | NUR ---
6.25mg 1/4cc of demerol given slow IVP
--- NOTE | 2020-01-30 14:38 | NUR ---
notified Dr Santana of patients elevated blood pressure. no new interventions ordered. Dr Santana stated patient is alright to discharge
--- NOTE | 2020-01-30 14:55 | NUR ---
PATIENT ARRIVED TO DAY PATIENT VIA STRETCHER BY JAYCE TSANG RN. PATIENT AAOX3, VITAL SIGNS STABLE, DENIES ANY PAIN AT THIS TIME. DRESSING TO LEFT UPPER ARM DRY/INTACT. NO BLEEDING/NO HEMATOMA NOTED.
--- NOTE | 2020-01-30 15:50 | NUR ---
PATIENT DISCHARGED FROM FACILITY VIA WHEELCHAIR BY ISABEL SALDAÑA MA. PATIENT ASSISTED INTO PRIVATE VEHICLE DRIVEN BY SPOUSE.
== END 2020-01-30 15:50 | disposition home or self-care (01) ==
LOC: DAH 08:56
PROVIDERS: ATTEND Thoracic Surgery (Cardiothoracic Vascular Surgery)
DX: T82.898A Other specified complication of vascular prosthetic devices, implants and grafts, initial encounter (principal); I12.0 Hypertensive chronic kidney disease with stage 5 chronic kidney disease or end stage renal disease; E11.22 Type 2 diabetes mellitus with diabetic chronic kidney disease; N18.6 End stage renal disease; Z88.0 Allergy status to penicillin; Z79.899 Other long term (current) drug therapy; Z20.828 Contact with and (suspected) exposure to other viral communicable diseases; Y83.8 Other surgical procedures as the cause of abnormal reaction of the patient, or of later complication, without mention of misadventure at the time of the procedure
CPT/HCPCS: 36415; 36832; 71046; 80053; 82948 ×3; 85025; 85610; 85730; 86156; 86850; 86870; 86900; 86901; 93005; A4215; A4221; A4222; A4452; A4649 ×2; A4663; A4930 ×2; A6207; A6260; C1713 ×2; C9803; G0168; J0330 ×2; J1100; J1644 ×2; J2001 ×2; J2175; J2405; J2704; J2710; J2720; J3010; J3370; J3490 ×4; J7030 ×2; U0003; J2440

== ENCOUNTER 2023-06-22 07:55 | Emergency (ER) | payer MEDICAID ==
[~2023-06-22] VITALS: Ht 165.1 cm; Wt 88.5 kg
[~2023-06-22 07:55] MED LIST changes: -CLINDAMYCIN 900 MG/D5% WATER 50 ML IV SCH; +LISI10TA24 PO; -LISI10TA7 PO
[2023-06-22 08:35] LABS: BASOPHILS # (AUTO) 0.05 K/uL (0.00-0.20); BASOPHILS % (AUTO) 0.6 % (0.0-5.0); EOSINOPHILS # (AUTO) 0.26 K/uL (0.00-0.70); EOSINOPHILS % (AUTO) 3.4 % (0.0-8.0); HEMATOCRIT 36.3 % (36-48); IMMATURE GRANULOCYTE ABSOLUTE 0.03 K/uL (0-1); LYMPHOCYTES # (AUTO) 1.1 K/uL (1.0-4.8); LYMPHOCYTES % (AUTO) 13.7 % (21.0-51.0); MEAN CORPUSCULAR HEMOGLOBIN 28.2 pg (27.0-33.0); MEAN CORPUSCULAR HGB CONC 32.2 g/dL (32.0-36.0); MEAN CORPUSCULAR VOLUME 87.5 fL (79-99); MONOCYTES # (AUTO) 0.6 K/uL (0.1-1.0); MONOCYTES % (AUTO) 7.9 % (3.0-13.0); NEUTROPHILS # (AUTO) 5.7 K/uL (1.8-7.7); PLATELET COUNT (AUTO) 203 K/uL (130-400); RED BLOOD CELL COUNT(AUTO) 4.15 MIL/uL (4.00-5.50); RED CELL DISTRIBUTION WIDTH 13.3 % (11.0-15.5); WHITE BLOOD COUNT (AUTO) 7.7 K/uL (4.8-10.8)
[2023-06-22 08:44] LABS: CREATININE 4.7 mg/dL (0.5-1.0); POTASSIUM 3.4 mmol/L (3.5-5.1)
[2023-06-22 08:48] LABS: ALBUMIN 3.9 g/dL (3.5-5.0); BILIRUBIN,TOTAL 0.7 mg/dL (0.2-1.0); TOTAL PROTEIN, SERUM 8.2 g/dL (6.0-8.3)
[2023-06-22] MEDS: ONDANSETRON 4MG TABLET PO ONE (09:18)
[2023-06-22] MEDS: LEVOFLOXACIN 500 MG TABLET PO SCH (09:18)
[2023-06-22] MEDS ORDERED: ONDA4TAB10 PO (09:37)
[2023-06-22] MEDS ORDERED: LOPE2TAB26 PO (09:37)
[2023-06-22] MEDS ORDERED: CIPR750T17 PO (09:37)
[2023-06-22 10:37] VITALS: BP 160/80; PULSE 98; RESP 16; O2SAT 95
== END 2023-06-22 10:38 | disposition home or self-care (01) ==
LOC: EDH 07:55
DX: K52.9 Noninfective gastroenteritis and colitis, unspecified (principal); I12.9 Hypertensive chronic kidney disease with stage 1 through stage 4 chronic kidney disease, or unspecified chronic kidney disease; E11.22 Type 2 diabetes mellitus with diabetic chronic kidney disease; N18.9 Chronic kidney disease, unspecified; E78.00 Pure hypercholesterolemia, unspecified; Z88.0 Allergy status to penicillin; Z79.899 Other long term (current) drug therapy; Z98.890 Other specified postprocedural states
CPT/HCPCS: 99283; 80053; 83690; 85025; 36415; Q0162

== ENCOUNTER 2024-02-04 12:02 | Emergency (ER) | payer MEDICAID ==
[~2024-02-04] VITALS: Ht 160 cm; Wt 87.5 kg
[~2024-02-04 12:02] MED LIST changes: +CIPR750T17 PO; +LOPE2TAB26 PO; +ONDA-243 PO
--- NOTE | 2024-02-04 12:12 | ERN ---
ED Note History of Present Illness Stated Complaint: FLU LIKE SYMPTYOMS Chief Complaint: Flu Symptoms Time Seen by MD: 12:05 Dictation: Patient is a 58-year-old hemodialysis patient coming in with fever chills nonproductive cough for one week. She denies nausea vomiting, states her hemodialysis days MWF. She states she saw her primary care doctor three days ago, they swabbed her for influenza and COVID told her that she had a probable infection and gave her doxycycline and Tessalon. No chest x-ray or labs were drawn. Patient states she is not feeling better, states she also makes urine. Allergies: Coded Allergies: Penicillins (Verified Allergy, Unknown, 11/21/19) Home Meds Active Scripts Albuterol Sulfate (Ventolin Hfa/Proventil Hfa/Proair Hfa) 90 Mcg Puff, 2 PUFF IH Q4H for WHEEZING, #1 INHALER 0 Refills Prov:SOLANGE COBURN NP 02/04/24 Levofloxacin (Levofloxacin) 500 Mg Tablet, 1 TAB PO QODAY for 10 Days, #5 TAB 0 Refills Prov:SOLANGE COBURN NP 02/04/24 Molnupiravir (Molnupiravir (Eua)) 200 Mg Capsule, 4 CAP PO BID for 5 Days, #40 CAP 0 Refills Prov:SOLANGE COBURN NP 02/04/24 Loperamide HCl (Loperamide) 2 Mg Tablet, 2 MG PO 5X/DAY for with every diarrhea, #12 TAB 0 Refills Prov:JAMES GRAHAM MD 06/22/23 Ondansetron (Ondansetron Odt) 4 Mg Tab.rapdis, 4 MG PO Q6H for nausea, #10 TAB 0 Refills Prov:JAMES GRAHAM MD 06/22/23 Ciprofloxacin HCl (Cipro) 750 Mg Tab, 750 MG PO BID for 3 Days, #6 TAB 0 Refills Prov:JAMES GRAHAM MD 06/22/23 Reported Medications Insulin Glargine,Hum.rec.anlog (Lantus) 100 Units/Ml Inj, 36 UNITS SQ ACBKFST, ML 11/22/19 Lisinopril (Lisinopril) 10 Mg Tablet, 10 MG PO HS, TAB 11/22/19 Metoprolol Tartrate (Metoprolol Tartrate) 25 Mg Tablet, 25 MG PO BID, TAB 11/22/19 Pravastatin Sodium (Pravachol) 20 Mg Tablet, 20 MG PO HS, TAB 11/22/19 Amlodipine Besylate (Norvasc) 10 Mg Tablet, 10 MG PO HS, TAB 11/22/19 Past Medical History Past Medical History: Diabetes-Type II, High Cholesterol, Hypertension, Renal Disese, Renal Failure Surgical History: Other, RAVA History: Not Applicable RN Note Reviewed/Agreed w/PFSH: Yes Review of System Dictation CONSTITUTIONAL: Negative except for HPI fever chills HEAD/FACE: Negative except for HPI EENT: Negative except for HPI RESPIRATORY: Negative except for HPI cough GASTROINTESTINAL/ABDOMINAL: Negative except for HPI GENITOURINARY: Negative except for HPI MUSCULOSKELETAL: Negative except for HPI INTEGUMENTARY: Negative except for HPI NEUROLOGICAL/PSYCH: Negative except for HPI HEMATOLOGIC/LYMPHATIC: Negative except for HPI All Systems Negative, Except as noted above. 13 point review of systems assessed and all negative except for above. Initial Vital Sign VS Vital Signs Date Time Temp Pulse Resp B/P (MAP) Pulse Ox O2 Delivery O2 Flow Rate FiO2 02/04/24 12:05 101.1 80 16 107/75 98 Room Air 02/04/24 15:04 0 21 Physical Exam Dictation Vital Signs reviewed General Appearance: Alert, oriented x 3, moderate acute distress, well develope d, nourished. Head and Face: non-traumatic. Eyes: PERRL, pink conjunctivas, eyelid no trauma, anterior chamber with arcus senilis. Ears: Pinnas intact and no signs of trauma or erythema ear canals clear and no discharge TM no erythema Nose: No discharge, no bleeding. Oropharynx: Mouth normal, tongue pink, pharynx clear,no erythema, tonsils no exudates, no abscesses noted, mucous membrane moist Neck: Supple, non-tender, no thyromegaly, no masses, no JVD, no bruits Breast:Deferred Chest:No tenderness, no crepitus, no paradoxical movement, no retractions Lungs:Clear, well-ventilated, symmetric, no rales, no wheezing, no rhonchi, no stridor, good breath sounds bilaterally Heart: Regular rate, regular rhythm, no murmur, no gallops Vascular: no peripheral edema, Abdomen: Soft, positive bowel sounds, nondistended, no guarding, nontender, no rebound, no masses no hepatomegaly, no splenomegaly, no Quiñonez's sign, no hernias. Rectal: Deferred Genital: Deferred Neurological: Normal speech, motor function intact, sensory function intact Musculoskeletal: Neck nontender, full range of motion, back nontender, full range of motion, Extremities: nontender, full range of motion Skin: Color pink, dry, no turgor, no rash, no lacerations, no abrasions, no contusions. Lymphatic: Deferred Results (Laboratory/Radiology) Laboratory/Radiology Laboratory Tests Test 02/04/24 12:34 02/04/24 15:20 02/04/24 16:00 White Blood Count 6.7 K/uL (4.8-10.8) Red Blood Count 4.04 MIL/uL (4.00-5.50) Hemoglobin 11.5 g/dL (12.0-16.0) L Hematocrit 34.5 % (36-48) L Mean Corpuscular Volume 85.4 fL (79-99) Mean Corpuscular Hemoglobin 28.5 pg (27.0-33.0) Mean Corpuscular Hemoglobin Concent 33.3 g/dL (32.0-36.0) Red Cell Distribution Width 14.6 % (11.0-15.5) Platelet Count 172 K/uL (130-400) Mean Platelet Volume 9.9 fL (7.5-10.5) Immature Granulocyte % (Auto) 0.6 % (0-1) Neutrophils (%) (Auto) 73.0 % (40.0-77.0) Lymphocytes (%) (Auto) 18.7 % (21.0-51.0) L Monocytes (%) (Auto) 6.0 % (3.0-13.0) Eosinophils (%) (Auto) 1.0 % (0.0-8.0) Basophils (%) (Auto) 0.7 % (0.0-5.0) Neutrophils # (Auto) 4.9 K/uL (1.8-7.7) Lymphocytes # (Auto) 1.3 K/uL (1.0-4.8) Monocytes # (Auto) 0.4 K/uL (0.1-1.0) Eosinophils # (Auto) 0.07 K/uL (0.00-0.70) Basophils # (Auto) 0.05 K/uL (0.00-0.20) Absolute Immature Granulocyte (auto 0.04 K/uL (0-1) Nucleated Red Blood Cells 0.0 % (0.0-0.19) Sodium Level 135 mmol/L (136-145) L Potassium Level 3.1 mmol/L (3.5-5.1) L Chloride Level 97 mmol/L (101-111) L Carbon Dioxide Level 37 mmol/L (21-32) H Blood Urea Nitrogen 16 mg/dL (7-18) Creatinine 4.1 mg/dL (0.5-1.0) H Glomerular Filtration Rate Calc 12 mL/min (>90) Random Glucose 90 mg/dL (70-105) Lactic Acid Level 1.7 mmol/L (0.8-2.5) Total Calcium 9.1 mg/dL (8.5-10.1) Urine Color LIGHT-ORANGE (YELLOW) Urine Appearance CLOUDY (CLEAR) H Urine pH 8.5 (5.0-8.0) H Urine Specific [place] 1.009 (1.001-1.031) Urine Protein 200 mg/dL (NEGATIVE) H Urine Glucose (UA) 50 mg/dL (NEGATIVE) H Urine Ketones NEGATIVE mg/dL (NEGATIVE) Urine Occult Blood LARGE (NEGATIVE) H Urine Nitrate NEGATIVE (NEGATIVE) Urine Bilirubin NEGATIVE mg/dL (NEGATIVE) Urine Urobilinogen 0.2 mg/dL (0.2-1.0) Urine Leukocyte Esterase 500 Jeannie/uL (NEGATIVE) H Urine RBC TNTC /HPF (0-1) H Urine WBC 51-100 /HPF (0-1) H Urine Squamous Epithelial Cells FEW /HPF (0-2) Urine Uric Acid Crystals FEW /LPF (None Seen) Urine Bacteria None /HPF (None Seen) Influenza Type A Antigen Negative For Type A Influenza Type B Antigen Negative For Type B SARS-CoV-2 Antigen (Rapid) POSITIVE FOR SARS AG Group A Streptococcus Rapid negative (NEGATIVE) INDICATION: Shortness of breath/cough. History of hemodialysis TECHNIQUE: CHEST 1VW COMPARISON: 01/28/2020 FINDINGS/IMPRESSION: Bilateral airspace consolidation suggesting vascular congestion/edema versus pneumonia. Small to moderate right effusion is seen. Mild cardiomegaly Mild degenerative changes of the spine. The visualized upper abdomen appears unremarkable. Labs Reviewed?: Yes ED Course ED Course Orders Procedure Category Date Status Time Covid19 (Sars Antigen LAB 02/04/24 Complete Rapid) 12:09 Influenza Type A & B, LAB 02/04/24 Complete Rapid 12:09 Blood Cult ROGERS 02/04/24 In Process 12:09 Lactic Acid LAB 02/04/24 Complete 12:09 Acetaminophen 500mg PHA 02/04/24 Complete Tab (Tylenol 500mg T 12:30 Cbc With Differential LAB 02/04/24 Complete 12:09 Urinalysis Profile LAB 02/04/24 Complete 12:09 12 Lead Ekg Tracing- EKG 02/04/24 Resulted Technical 12:09 Chest 1vw RAD 02/04/24 Resulted 12:09 Basic Metabolic Panel LAB 02/04/24 Complete 12:09 Rapid (Group A Strep) LAB 02/04/24 Complete 12:13 Potassium Bicarb/Cit PHA 02/04/24 Complete Ac 25meq (K-Lyte Ta 13:30 Culture Urine ROGERS 02/04/24 Complete 15:50 Levofloxacin 500mg PHA 02/04/24 Complete Tab (Levaquin 500mg T 16:31 Current Medications Medications (Trade) Dose Ordered Sig/Gareth Route PRN Reason Start Time Stop Time Status Last Admin Dose Admin Acetaminophen (TYLenol 500MG TAB) 1,000 mg ONCE ONCE PO 02/04/24 12:30 02/04/24 12:31 DC 02/04/24 12:38 Levofloxacin (LEvaquIN 500MG TAB) 500 mg ONCE STAT PO 02/04/24 16:31 02/04/24 16:35 DC 02/04/24 17:20 Potassium Bicarbonate (K-Lyte Tablet Eff 25 Meq Tablet.eff) 25 meq ONCE ONCE PO 02/04/24 13:30 02/04/24 13:31 DC 02/04/24 13:56 Vital Signs Date Time Temp Pulse Resp B/P (MAP) Pulse Ox O2 Delivery O2 Flow Rate FiO2 02/04/24 18:00 98.2 72 16 111/55 96 Room Air* 0 02/04/24 17:00 98.2 72 16 112/59 98 Room Air* 0 02/04/24 16:00 98.1 74 16 136/68 98 Room Air* 0 02/04/24 15:04 98.1 74 16 119/63 98 Room Air* 0 02/04/24 12:38 101.1 02/04/24 12:05 101.1 80 16 107/75 98 Room Air 1742, PATIENT IS COVID-19 POSITIVE WITH UTI. SHE IS CURRENTLY AFEBRILE, DISCUSSED ADMITTING PATIENT TO THE HOSPITAL DUE TO FEVER COMBINED WITH SARS COVID AND UTI. SHE DID NOT WANT TO BE ADMITTED TO THE HOSPITAL DESPITE GIVEN THE RATIONALE FOR KEEPING HER FOR 24 HOURS SATURATIONS CURRENTLY 98 99% ON ROOM AIR NO ACUTE DISTRESS WISHES TO GO HOME. I ADVISED PATIENT TO RETURN TO THE [facility] THERE WERE ANY SIGNIFICANT CHANGES SHORTNESS A BREATH NAUSEA VOMITING Medical Decision Making MDM MDM: DIFFERENTIAL DIAGNOSIS: SEPSIS/COVID- 19/FLU/PNEUMONIA/BRONCHITIS/UTI/ELECTROLYTE IMBALANCE/DEHYDRATION RATIONALE: TESTS CONSIDERED AND ORDERED SECONDARY TO SHARED DECISION MAKING INCLUDE: LABS/EKG/RADIOLOGY PREVIOUS OUTSIDE RECORDS REVIEWED: OLD ER VISITS. REVIEWED RISK OF COMPLICATION AND/OR MORBIDITY OR MORTALITY OF PATIENT MANAGEMENT: NONE MEDICATIONS-PER MEDICATION RECONCILIATION NEED FOR HOSPITALIZATION: PATIENT DOES NOT MEET CRITERIA FOR HOSPITALIZATION. PATIENT REFUSED NEED FOR EMERGENCY MAJOR/MINOR SURGERY: NO THERE ARE NO SOCIAL CONCERNS WITH THIS PATIENT. PRESCRIPTION DRUG MANAGEMENT LEVAQUIN 250 Q.O.D. X7 DAYS AND MULPUVINIR PRESCRIPTIONS WILL INCLUDE SYMPTOMATIC CARE PATIENT'S PRIOR EXTERNAL MEDICAL RECORDS FROM OTHER ER VISITS WERE REVIEWED BY ME INDICATED. PRIOR TESTING AND RESULTS FROM PREVIOUS VISITS WERE REVIEWED. PRIOR TESTS WERE TAKEN INTO ACCOUNT WITH MEDICAL DECISION MAKING AND RESOURCE UTILIZATION, INDEPENDENT HISTORIAN/HISTORIANS WERE USED TO OBTAIN COMPLETE M EDICAL HISTORY. I INDEPENDENTLY INTERPRETED THE TEST THAT WERE PERFORMED, RESULTS WERE REVIEWED BY ME AND CONSIDERED FINDINGS ON RADIOLOGY IF ORDERED. MEDICAL MANAGEMENT AND EXAMINATION INTERPRETATION DISCUSSIONS WERE HAD BY ME WITH OTHER QUALIFIED HEALTHCARE PROFESSIONALS INDICATED FOR THE PATIENT'S CARE. DX & DISP Disposition: Discharge Departure Impression: Primary Impression: COVID-19 virus infection Additional Impressions: Acute UTI, ESRD (end stage renal disease) on dialysis, Fever, Anemia of chronic kidney failure, Hypokalemia Condition: Stable Scripts Albuterol Sulfate (Ventolin Hfa/Proventil Hfa/Proair Hfa) 90 Mcg Puff 2 PUFF IH Q4H for WHEEZING, #1 INHALER 0 Refills Prov: SOLANGE COBURN COLLECTION COORDINATOR 02/04/24 Levofloxacin (Levofloxacin) 500 Mg Tablet 1 TAB PO QODAY for 10 Days, #5 TAB 0 Refills Prov: SOLANGE COBURN COLLECTION COORDINATOR 02/04/24 Molnupiravir (Molnupiravir (Eua)) 200 Mg Capsule 4 CAP PO BID for 5 Days, #40 CAP 0 Refills Prov: SOLANGE COBURN NP 02/04/24 Additional Instructions: FOLLOW-UP WITH PRIMARY CARE PROVIDER IN 1 TO 2 DAYS. TAKE MEDICATIONS DIRECTED HERE IN THE EMERGENCY ROOM. OKAY TO CONTINUE HOME MEDICATIONS UNLESS OTHERWISE DISCUSSED DURING YOUR VISIT IN THE EMERGENCY ROOM TODAY. RETURN TO YOUR NEAREST EMERGENCY ROOM IF SYMPTOMS WORSEN OR IF THERE IS NO IMPROVEMENT. CALL 911 IF YOU NEED IMMEDIATE ASSISTANCE. TAKE TYLENOL OR MOTRIN [id number] NEEDED AND IF NO CONTRAINDICATIONS ARE PRESENT. INCREASE ORAL HYDRATION. A WOUND CULTURE OR URINE CULTURE WAS ORDERED HERE IN THE EMERGENCY ROOM DEPARTMENT PLEASE FOLLOW-UP WITH PRIMARY CARE PROVIDER AND ADVISE THEM TO GET REPEAT PORTS FROM OUR FACILITY. IF YOU HAD ANY HOLLIE WRAP/SPLINTS THAT WERE APPLIED HERE, PLEASE DO NOT REMOVE THEM UNTIL YOU SEE YOUR PRIMARY CARE OR SPECIALTY. TAKE MEDICATIONS DIRECTED UNTIL GONE., TAKE TYLENOL ONLY FOR FEVER PAIN. SEE YOUR PRIMARY CARE DOCTOR FOR FOLLOW UP. Referrals: SELF,REFERRAL (PCP) Time of Disposition: 17:47 I have reviewed the case, and I agree with, Diagnosis and Plan I performed a substantive portion of the visit. I have reviewed and personally made and approve the management plan that is documented in the notes by myself with RAMONITA/resident. I acknowledged full responsibility for the patient's management plan. SOLANGE COBURN NP Feb 04, 2024 12:12 ANUJ TRAVIS DO Feb 06, 2024 11:04
[2024-02-04] MEDS: acetaMINOPHEN 500 MG TABLET PO ONE (12:38)
[2024-02-04 12:41] LABS: BASOPHILS # (AUTO) 0.05 K/uL (0.00-0.20); BASOPHILS % (AUTO) 0.7 % (0.0-5.0); EOSINOPHILS # (AUTO) 0.07 K/uL (0.00-0.70); HEMATOCRIT 34.5 % (36-48); IMMATURE GRANULOCYTE ABSOLUTE 0.04 K/uL (0-1); LYMPHOCYTES # (AUTO) 1.3 K/uL (1.0-4.8); LYMPHOCYTES % (AUTO) 18.7 % (21.0-51.0); MEAN CORPUSCULAR HEMOGLOBIN 28.5 pg (27.0-33.0); MEAN CORPUSCULAR HGB CONC 33.3 g/dL (32.0-36.0); MEAN CORPUSCULAR VOLUME 85.4 fL (79-99); MONOCYTES # (AUTO) 0.4 K/uL (0.1-1.0); NEUTROPHILS # (AUTO) 4.9 K/uL (1.8-7.7); PLATELET COUNT (AUTO) 172 K/uL (130-400); RED BLOOD CELL COUNT(AUTO) 4.04 MIL/uL (4.00-5.50); RED CELL DISTRIBUTION WIDTH 14.6 % (11.0-15.5); WHITE BLOOD COUNT (AUTO) 6.7 K/uL (4.8-10.8)
[2024-02-04 12:49] LABS: CREATININE 4.1 mg/dL (0.5-1.0); POTASSIUM 3.1 mmol/L (3.5-5.1)
--- NOTE | 2024-02-04 13:02 | NUR ---
PATIENT REPORTS SHE DOES NOT PRODUCE MUCH URINE
--- NOTE | 2024-02-04 13:40 | HMCIMG ---
INDICATION: Shortness of breath/cough. History of hemodialysis TECHNIQUE: CHEST 1VW COMPARISON: 01/28/2020 FINDINGS/IMPRESSION: Bilateral airspace consolidation suggesting vascular congestion/edema versus pneumonia. Small to moderate right effusion is seen. Mild cardiomegaly Mild degenerative changes of the spine. The visualized upper abdomen appears unremarkable.
[2024-02-04] MEDS: PoTASSium BIcarbonate/CIT AC 25 MEQ TABLET.EFF PO ONE (13:56)
[2024-02-04 14:00] VITALS: TEMP 99
[2024-02-04 15:39] LABS: APPEARANCE,URINE CLOUDY (CLEAR); BILIRUBIN,URINE NEGATIVE (NEGATIVE); COLOR,URINE LIGHT-ORANGE (YELLOW); GLUCOSE, URINE (UA) 50 mg/dL (NEGATIVE); KETONES,URINE NEGATIVE (NEGATIVE); LEUKOCYTE ESTERASE ,URINE 500 Leu/uL (NEGATIVE); NITRATE,URINE NEGATIVE (NEGATIVE); OCCULT BLOOD,URINE LARGE (NEGATIVE); PH,URINE 8.5 (5.0-8.0); PROTEIN,URINE 200 mg/dL (NEGATIVE); UROBILINOGEN,URINE 0.2 mg/dL (0.2-1.0)
[2024-02-04 15:50] LABS: ADD UA MICROSCOPIC YES
[2024-02-04 15:53] LABS: MUCUS,URINE RARE LPF (None Seen); RBC,URINE TNTC /HPF (0-1); SQUAMOUS EPITHELIAL CELL,UR FEW /HPF (0-2); URIC ACID CRYSTALS,URINE FEW /LPF (None Seen); WBC,URINE 51-100 /HPF (0-1)
[2024-02-04 17:15] LABS: INFLUENZA TYPE A Negative For Type A (NEGATIVE); INFLUENZA TYPE B Negative For Type B (NEGATIVE)
[2024-02-04] MEDS: levoFLOXacin 500 MG TABLET PO STA (17:20)
[2024-02-04 17:42] LABS: COVID19 (SARS ANTIGEN RAPID) POSITIVE FOR SARS AG (NEGATIVE)
[2024-02-04] MEDS ORDERED: MOLN200C PO (17:50)
[2024-02-04] MEDS ORDERED: LEVO-70 PO (17:50)
[2024-02-04 18:00] VITALS: BP 111/55; PULSE 72; RESP 16; TEMP 98.3; O2SAT 96
[2024-02-04] MEDS ORDERED: ALBUHFA IH (18:09)
--- NOTE | 2024-02-05 07:32 | EKG ---
[facility] Test Date: 2024-02-04 Test Time: 12:23:23 Pat Name: CLYDE GAMBOA Department: ED Room: Gender: F Hoop Puncher: [id number] : [id number] Requested By: SOLANGE COBURN Order Number: [id number] Reading MD: Beckie Foley Measurements Intervals [place] Rate: 80 P: 30 AK: 168 QRS: 4 QRSD: 93 T: 191 QT: 354 QTc: 409 Interpretive Statements Sinus rhythm Low voltage, precordial leads Abnormal T, consider ischemia, diffuse leads Compared to ECG 01/28/2020 12:14:42 Low QRS voltage now present T-wave abnormality now present Possible ischemia now present Electronically Signed On 02-05-2024 10:48:03 [facility] CONSULTANT by Beckie Foley Please click the below link to view image of tracing.
--- NOTE | 2024-02-13 12:51 | NUR ---
UPON REVIEW OF CULTURE RESULTS BY DR. STEPHENS, NO FURTHER TX NEEDED.
== END 2024-02-04 18:28 | disposition home or self-care (01) ==
LOC: EDH 12:02
DX: U07.1 COVID-19 (principal); I12.0 Hypertensive chronic kidney disease with stage 5 chronic kidney disease or end stage renal disease; E11.22 Type 2 diabetes mellitus with diabetic chronic kidney disease; N18.6 End stage renal disease; N39.0 Urinary tract infection, site not specified; E78.00 Pure hypercholesterolemia, unspecified; D63.1 Anemia in chronic kidney disease; E87.6 Hypokalemia; Z88.0 Allergy status to penicillin; Z99.2 Dependence on renal dialysis; Z20.822 Contact with and (suspected) exposure to COVID-19
CPT/HCPCS: 36415; 71045; 80048; 81001; 83605; 85025; 87040; 87086; 87186; 87426; 87804; 87880; 93005; 99285

== ENCOUNTER 2024-03-17 17:47 | Emergency (ER) | payer MEDICAID ==
[~2024-03-17] VITALS: Ht 160 cm; Wt 79.8 kg
[~2024-03-17 17:47] MED LIST changes: +ALBUHFA IH; +LEVO-70 PO; +MOLN200C PO
[2024-03-17 18:11] LABS: BASOPHILS # (AUTO) 0.08 K/uL (0.00-0.20); BASOPHILS % (AUTO) 1.1 % (0.0-5.0); EOSINOPHILS # (AUTO) 0.33 K/uL (0.00-0.70); EOSINOPHILS % (AUTO) 4.7 % (0.0-8.0); HEMATOCRIT 34.5 % (36-48); IMMATURE GRANULOCYTE ABSOLUTE 0.02 K/uL (0-1); LYMPHOCYTES # (AUTO) 1.9 K/uL (1.0-4.8); LYMPHOCYTES % (AUTO) 27.3 % (21.0-51.0); MEAN CORPUSCULAR HEMOGLOBIN 27.8 pg (27.0-33.0); MEAN CORPUSCULAR HGB CONC 32.2 g/dL (32.0-36.0); MEAN CORPUSCULAR VOLUME 86.5 fL (79-99); MONOCYTES # (AUTO) 0.7 K/uL (0.1-1.0); MONOCYTES % (AUTO) 9.2 % (3.0-13.0); NEUTROPHILS % (AUTO) 57.4 % (40.0-77.0); PLATELET COUNT (AUTO) 296 K/uL (130-400); RED BLOOD CELL COUNT(AUTO) 3.99 MIL/uL (4.00-5.50); RED CELL DISTRIBUTION WIDTH 16.2 % (11.0-15.5)
[2024-03-17 18:16] LABS: CREATININE 5.5 mg/dL (0.5-1.0); POTASSIUM 3.2 mmol/L (3.5-5.1)
--- NOTE | 2024-03-17 18:28 | HMCIMG ---
CHEST 1VW CLINICAL HISTORY: CHEST PAIN COMPARISON: 02/04/2024 TECHNIQUE: Single view of the chest was obtained. FINDINGS: There is mild eventration of the right diaphragm with atelectasis. This also moderate congestive heart failure. Cardiac size mildly enlarged. The bony structures are within normal limits. IMPRESSION: Findings most consistent with moderate congestive heart failure.
[2024-03-17 18:32] LABS: INR 1.33 (0.85-1.15); PROTHROMBIN TIME 14.5 SEC (9.6-11.6)
[2024-03-17 18:33] LABS: PARTIAL THROMBOPLASTIN TIME 30.5 SEC (26.3-35.5)
[2024-03-17 18:45] LABS: B-TYPE NATRIURETIC PEPTIDE 1390 pg/mL (0-100)
--- NOTE | 2024-03-17 19:04 | ERN ---
ED Note History of Present Illness Stated Complaint: CHEST PAIN Chief Complaint: Chest Pain Time Seen by MD: 18:05 Time Seen by Midlevel: 18:05 Dictation: The Patient is a 58-year-old female with a history of ESRD on dialysis, hypertension, diabetes, hyperlipidemia who presents to the emergency department with complaints of left-sided chest pain associated with shortness of breath onset 4:30 p.m.. Patient denies any fevers, cough, nausea vomiting or diarrhea. Allergies: Coded Allergies: Penicillins (Verified Allergy, Unknown, 11/21/19) Home Meds Active Scripts Albuterol Sulfate (Ventolin Hfa/Proventil Hfa/Proair Hfa) 90 Mcg Puff, 2 PUFF IH Q4H for WHEEZING, #1 INHALER 0 Refills Prov:SOLANGE COBURN NP 02/04/24 Levofloxacin (Levofloxacin) 500 Mg Tablet, 1 TAB PO QODAY for 10 Days, #5 TAB 0 Refills Prov:SOLANGE COBURN NP 02/04/24 Molnupiravir (Molnupiravir (Eua)) 200 Mg Capsule, 4 CAP PO BID for 5 Days, #40 CAP 0 Refills Prov:SOLANGE COBURN NP 02/04/24 Loperamide HCl (Loperamide) 2 Mg Tablet, 2 MG PO 5X/DAY for with every diarrhea, #12 TAB 0 Refills Prov:JAMES GRAHAM MD 06/22/23 Ondansetron (Ondansetron Odt) 4 Mg Tab.rapdis, 4 MG PO Q6H for nausea, #10 TAB 0 Refills Prov:JAMES GRAHAM MD 06/22/23 Ciprofloxacin HCl (Cipro) 750 Mg Tab, 750 MG PO BID for 3 Days, #6 TAB 0 Refills Prov:JAMES GRAHAM MD 06/22/23 Reported Medications Insulin Glargine,Hum.rec.anlog (Lantus) 100 Units/Ml Inj, 36 UNITS SQ ACBKFST, ML 11/22/19 Lisinopril (Lisinopril) 10 Mg Tablet, 10 MG PO HS, TAB 11/22/19 Metoprolol Tartrate (Metoprolol Tartrate) 25 Mg Tablet, 25 MG PO BID, TAB 11/22/19 Pravastatin Sodium (Pravachol) 20 Mg Tablet, 20 MG PO HS, TAB 11/22/19 Amlodipine Besylate (Norvasc) 10 Mg Tablet, 10 MG PO HS, TAB 11/22/19 Past Medical History Past Medical History: Diabetes-Type II, High Cholesterol, Heart Disease, Hypertension, Renal Failure, TIA Surgical History: Other Surgical History Other: DIOR HD FISTULA/GRAFT History: Not Applicable RN Note Reviewed/Agreed w/PFSH: Yes Review of System Dictation Constitutional: Negative for fever,chills, and weight loss Eyes: Negative for injury, pain,redness, and discharge ENT: Negative for injury,pain or swelling Cardiovascular: Negative for palpitations, and edema positive for chest pain Respiratory: Negative for, cough, and wheezing, positive for shortness of breath Abdomen/GI: Negative for abdominal pain, nausea, vomiting, diarrhea, and constipation Back: Negative for injury and pain : Negative for injury, bleeding and discharge MS/Extremity: Negative for injury and deformity Skin: Negative for rash, and discoloration Neuro: Negative for headache, weakness, numbness, tingling, and seizure Psych: Negative for suicide ideation, homicidal ideation, and hallucinations Initial Vital Sign VS Vital Signs Date Time Temp Pulse Resp B/P (MAP) Pulse Ox O2 Delivery O2 Flow Rate FiO2 03/17/24 17:51 98.4 75 18 126/55 97 Room Air 0 03/17/24 18:09 21 Physical Exam Dictation Vital Signs reviewed General Appearance: Alert, oriented x 3, no acute distress, well developed, nourished. Head and Face: non-traumatic. Eyes: Left eye opaque, pink conjunctivas, eyelid no trauma, anterior chamber with arcus senilis. Ears: Pinnas intact and no signs of trauma or erythema ear canals clear and no discharge TM no erythema Nose: No discharge, no bleeding. Oropharynx: Mouth normal, tongue pink. pharynx clear,no erythema, tonsils no exudates, no abscesses noted, mucous membrane moist Neck: Supple, non-tender, no thyromegaly, no masses, no JVD, no bruits Breast:Deferred Chest:No tenderness, no crepitus, no paradoxical movement, no retractions Lungs:Clear, well-ventilated, symmetric, no rales, no wheezing, no rhonchi, no stridor, good breath sounds bilaterally Heart: Regular rate, regular rhythm, no murmur, no gallops Vascular: no peripheral edema, Abdomen: Soft, positive bowel sounds, nondistended, no guarding, nontender, no rebound, no masses no hepatomegaly, no splenomegaly, no Quiñonez's sign, no hernias. Rectal: Deferred Genital: Deferred Neurological: Normal speech, motor function intact, sensory function intact Musculoskeletal: Neck nontender, full range of motion, back nontender, full range of motion, Extremities: nontender, full range of motion Skin: Color pink, dry, no turgor, no rash, no lacerations, no abrasions, no contusions. Lymphatic: Deferred Results (Laboratory/Radiology) Laboratory/Radiology Laboratory Tests Test 03/17/24 18:00 03/17/24 18:25 03/17/24 19:34 White Blood Count 7.0 K/uL (4.8-10.8) Red Blood Count 3.99 MIL/uL (4.00-5.50) L Hemoglobin 11.1 g/dL (12.0-16.0) L Hematocrit 34.5 % (36-48) L Mean Corpuscular Volume 86.5 fL (79-99) Mean Corpuscular Hemoglobin 27.8 pg (27.0-33.0) Mean Corpuscular Hemoglobin Concent 32.2 g/dL (32.0-36.0) Red Cell Distribution Width 16.2 % (11.0-15.5) H Platelet Count 296 K/uL (130-400) Mean Platelet Volume 9.7 fL (7.5-10.5) Immature Granulocyte % (Auto) 0.3 % (0-1) Neutrophils (%) (Auto) 57.4 % (40.0-77.0) Lymphocytes (%) (Auto) 27.3 % (21.0-51.0) Monocytes (%) (Auto) 9.2 % (3.0-13.0) Eosinophils (%) (Auto) 4.7 % (0.0-8.0) Basophils (%) (Auto) 1.1 % (0.0-5.0) Neutrophils # (Auto) 4.0 K/uL (1.8-7.7) Lymphocytes # (Auto) 1.9 K/uL (1.0-4.8) Monocytes # (Auto) 0.7 K/uL (0.1-1.0) Eosinophils # (Auto) 0.33 K/uL (0.00-0.70) Basophils # (Auto) 0.08 K/uL (0.00-0.20) Absolute Immature Granulocyte (auto 0.02 K/uL (0-1) Nucleated Red Blood Cells 0.0 % (0.0-0.19) Prothrombin Time 14.5 SEC (9.6-11.6) H Prothromb Time International Ratio 1.33 (0.85-1.15) H Activated Partial Thromboplast Time 30.5 SEC (26.3-35.5) Sodium Level 139 mmol/L (136-145) Potassium Level 3.2 mmol/L (3.5-5.1) L Chloride Level 97 mmol/L (101-111) L Carbon Dioxide Level 31 mmol/L (21-32) Blood Urea Nitrogen 18 mg/dL (7-18) Creatinine 5.5 mg/dL (0.5-1.0) H Glomerular Filtration Rate Calc 9 mL/min (>90) Random Glucose 138 mg/dL (70-105) H Total Calcium 9.9 mg/dL (8.5-10.1) Total Creatine Kinase 50 U/L (21-232) # B-Type Natriuretic Peptide 1390 pg/mL (0-100) H Troponin I < 0.05 ng/mL (0.00-0.05) Troponin I High Sensitivity 13 ng/L (4-50) REASON: CHEST PAIN ORDERING PHYSICIAN: SAMY ERICKSON MD PROCEDURE: CXR1VW - CHEST 1VW CHEST 1VW CLINICAL HISTORY: CHEST PAIN COMPARISON: 02/04/2024 TECHNIQUE: Single view of the chest was obtained. FINDINGS: There is mild eventration of the right diaphragm with atelectasis. This also moderate congestive heart failure. Cardiac size mildly enlarged. The bony structures are within normal limits. IMPRESSION: Findings most consistent with moderate congestive heart failure. Labs Reviewed?: Yes EKG: (+) rhythm (Sinus bradycardia) EKG Comment: EKG 03/17/2024 1748 ventricular rate 75, regular rate and rhythm, normal sinus rhythm, no STEMI ED Course ED Course Orders Procedure Category Date Status Time Vital Signs Per CPOE 03/17/24 Transmitted Routine 17:48 B-Type Natriuretic LAB 03/17/24 Complete Peptide 17:48 Chest 1vw RAD 03/17/24 Resulted 17:48 12 Lead Ekg Tracing- EKG 03/17/24 Logged Technical 17:48 Oxygen By Nc/Pulse Ox CPOE 03/17/24 Transmitted 17:48 Maintain Iv CPOE 03/17/24 Transmitted 17:48 Iv Insertion CPOE 03/17/24 Transmitted 17:48 Cardiac Monitoring CPOE 03/17/24 Transmitted 17:48 Pulse Oximetry With CPOE 03/17/24 Transmitted Vs And Prn 17:48 Cbc With Differential LAB 03/17/24 Complete 17:48 Activity: Br W/Brp CPOE 03/17/24 Transmitted With Assist 17:48 Creatine Kinase, Total LAB 03/17/24 Complete 17:48 Troponin Poc Order LAB 03/17/24 Complete Only 17:48 Bedside Troponin-I LAB.ER 03/17/24 Complete (Poc) 17:48 Basic Metabolic Panel LAB 03/17/24 Complete 17:48 Nitroglycerin 1gm PHA 03/17/24 Complete Oint (Nitroglycerin 1g 18:30 Aspirin 325mg Tab PHA 03/17/24 Complete (Aspirin 325mg Tab) 18:30 Pt And Ptt LAB 03/17/24 Complete 18:18 Troponin I High LAB 03/17/24 Complete Sensitivity 19:19 Hydroxyzine 50mg Vial PHA 03/17/24 Complete (Atarax 50mg Inj) 20:00 Furosemide 40mg Vial PHA 03/17/24 Complete (Lasix 40mg Vial) 20:00 Current Medications Medications (Trade) Dose Ordered Sig/Gareth Route PRN Reason Start Time Stop Time Status Last Admin Dose Admin Aspirin (Aspirin 325mg Tab) 325 mg ONCE ONCE PO 03/17/24 18:30 03/17/24 18:32 DC 03/17/24 19:06 Furosemide (LASix 40MG VIAL) 40 mg ONCE ONCE IV 03/17/24 20:00 03/17/24 20:01 DC 03/17/24 19:59 Hydroxyzine HCl (ATArax 50MG INJ) 25 mg ONCE ONCE IM 03/17/24 20:00 03/17/24 20:01 DC 03/17/24 19:59 Nitroglycerin (Nitroglycerin 1gm Oint) 1 inch ONCE ONCE TD 03/17/24 18:30 03/17/24 18:32 DC 03/17/24 19:06 Vital Signs Date Time Temp Pulse Resp B/P (MAP) Pulse Ox O2 Delivery O2 Flow Rate FiO2 03/17/24 20:54 97.9 75 14 148/91 100 Room Air* 0 21 03/17/24 19:28 98.1 73 15 147/81 98 Room Air* 0 21 03/17/24 18:09 97.5 73 16 154/74 97 Room Air* 0 21 03/17/24 17:51 98.4 75 18 126/55 97 Room Air 0 HEART Score Response (Comments) Value History: Low suspicion (0) 0 EKG: Normal 0 Age: 45-65yrs (+1) 1 Risk Factors: 3+ risk factors (+2) 2 Initial Troponin: Normal limit (0) 0 Total 3 Medical Decision Making MDM The Patient is a 58-year-old female with a history of ESRD on dialysis, hypertension, diabetes, hyperlipidemia who presents to the emergency department with complaints of left-sided chest pain associated with shortness of breath onset 4:30 p.m.. Patient denies any fevers, cough, nausea vomiting or diarrhea. Patient chest pain reproducible i with palpation. CBC showed no leukocytosis, c mild normocytic anemia, unchanged from previous visits, chemistry showed mild hypokalemia, negative troponin x2, BNP elevated. Patient reports she still produces a little bit of urine. Patient given Lasix. Patient is due for dialysis in the morning. Patient reports no longer feeling short of breath or having chest pain. Discussed lab results with the patient who at this time does not want to be admitted to the hospital and rhythm rather go home and get dialysis in the morning. Risks and benefits discussed patient who agrees to be discharged and return if anything worsens. Patient currently in no acute distress, 98% on room air. Chest pain-free. Differential diagnosis: ACS, pneumonia, pneumothorax, electrolyte imbalance, anxiety Need for hospitalization: Patient does not meet criteria for hospitalization. There are no social concerns with this patient. DX & DISP Disposition: Discharge Departure Impression: Primary Impression: Chest pain Additional Impressions: Elevated brain natriuretic peptide (BNP) level, ESRD on hemodialysis, Anemia, Anxiety Condition: Stable Additional Instructions: Please make sure you go to dialysis in the morning. If symptoms worsen please return to ER. FOLLOW-UP WITH PRIMARY CARE PROVIDER IN 1 TO 2 DAYS. TAKE MEDICATIONS DIRECTED HERE IN THE EMERGENCY ROOM. OKAY TO CONTINUE HOME MEDICATIONS UNLESS OTHERWISE DISCUSSED DURING YOUR VISIT IN THE EMERGENCY ROOM TODAY. RETURN TO YOUR NEAREST EMERGENCY ROOM IF SYMPTOMS WORSEN OR IF THERE IS NO IMPROVEMENT. CALL 911 IF YOU NEED IMMEDIATE ASSISTANCE. TAKE TYLENOL GABD-BJO-HGIENTH NEEDED AND IF NO CONTRAINDICATIONS ARE PRESENT. INCREASE ORAL HYDRATION. A WOUND CULTURE OR URINE CULTURE WAS ORDERED HERE IN THE EMERGENCY ROOM DEPARTMENT PLEASE FOLLOW-UP WITH PRIMARY CARE PROVIDER AND ADVISE THEM TO GET REPEAT PORTS FROM OUR FACILITY. IF YOU HAD ANY HOLLIE WRAP/SPLINTS THAT WERE APPLIED HERE, PLEASE DO NOT REMOVE THEM UNTIL YOU SEE YOUR PRIMARY CARE OR SPECIALTY. Referrals: SELF,REFERRAL (PCP) Time of Disposition: 20:39 I have reviewed the case, and I agree with, Diagnosis and Plan ATTESTATION BY PHYSICIAN I PERFORMED THE SUBSTANTIVE PORTION OF THE VISIT. I HAVE REVIEWED AND PERSONALLY MADE AND APPROVED THE MANAGEMENT PLAN THAT IS DOCUMENTED IN THE NOTE BY MYSELF FOR THE A PP. I ACKNOWLEDGED FOR RESPONSIBILITY FOR THE PATIENT'S MANAGEMENT PLAN. WILLIAM FELIZ Mar 17, 2024 19:04 ESAU STEPHENS MD Mar 18, 2024 05:29
[2024-03-17] MEDS: ASPIRIN 325MG TAB PO ONE (19:06)
[2024-03-17] MEDS: NITROGLYCERIN 1GM OINT 1 INCH/1GM TD ONE (19:06)
[2024-03-17] MEDS: hydrOXYzine 50MG VIAL 50 MG/ML VIAL IM ONE (19:59)
[2024-03-17] MEDS: furoSEMIDE 40MG VIAL IV ONE (19:59)
[2024-03-17 20:54] VITALS: BP 148/91; PULSE 75; RESP 14; TEMP 97.8; O2SAT 100
--- NOTE | 2024-03-18 10:07 | EKG ---
[facility] Test Date: 2024-03-17 Test Time: 17:48:22 Pat Name: CLYDE GAMBOA Department: ED Room: Gender: Female Maintenance Chief: [id number] : 1965 Requested By: SAMY ERICKSON Order Number: [id number] Reading MD: Measurements Intervals [place] Rate: 75 P: 13 NC: 200 QRS: -7 QRSD: 98 T: 198 QT: 429 QTc: 481 Interpretive Statements Saudit sinus rhythm Low voltage, extremity and precordial leads Abnormal T, consider ischemia, diffuse leads No previous ECG available for comparison Please click the below link to view image of tracing.
== END 2024-03-17 20:55 | disposition home or self-care (01) ==
LOC: EDH 17:47
DX: R07.89 Other chest pain (principal); I12.0 Hypertensive chronic kidney disease with stage 5 chronic kidney disease or end stage renal disease; E11.22 Type 2 diabetes mellitus with diabetic chronic kidney disease; N18.6 End stage renal disease; D63.1 Anemia in chronic kidney disease; R79.89 Other specified abnormal findings of blood chemistry; E78.00 Pure hypercholesterolemia, unspecified; F41.9 Anxiety disorder, unspecified; Z79.899 Other long term (current) drug therapy; Z86.73 Personal history of transient ischemic attack (TIA), and cerebral infarction without residual deficits; Z88.0 Allergy status to penicillin; Z99.2 Dependence on renal dialysis; Z98.890 Other specified postprocedural states
CPT/HCPCS: 99285; 96374; 71045; 82550; 84484 ×2; 80048; 83880; 85025; 85610; 85730; 36415; 93005; 96372; J3410; J1940

== ENCOUNTER 2024-06-28 08:53 | Emergency (ER) | payer MEDICAID ==
[~2024-06-28] VITALS: Ht 160 cm; Wt 85.3 kg
[~2024-06-28 08:53] MED LIST changes: +AMLO-915 PO; -AMLO10TA4 PO
--- NOTE | 2024-06-28 09:23 | EKG ---
[facility] Test Date: 2024-06-28 Test Time: 09:21:05 Pat Name: CLYDE GAMBOA Department: ED Room: Gender: F Medical Reviewer: [id number] : 1965 Requested By: ESAU STEPHENS Order Number: [id number] Reading MD: Dixie Maradiaga Measurements Intervals [place] Rate: 81 P: 35 AL: 182 QRS: 2 QRSD: 90 T: 0 QT: 0 QTc: 0 Interpretive Statements Sinus rhythm Low voltage, extremity and precordial leads Nonspecific T abnormalities, lateral leads Compared to ECG 03/17/2024 17:48:22 Possible ischemia no longer present T-wave abnormality still present Electronically Signed On 06-28-2024 09:34:18 CDT by Dixie Maradiaga Please click the below link to view image of tracing.
[2024-06-28 09:56] LABS: BASOPHILS # (AUTO) 0.09 K/uL (0.00-0.20); BASOPHILS % (AUTO) 1.2 % (0.0-5.0); EOSINOPHILS # (AUTO) 0.25 K/uL (0.00-0.70); EOSINOPHILS % (AUTO) 3.5 % (0.0-8.0); HEMATOCRIT 37.8 % (36-48); IMMATURE GRANULOCYTE ABSOLUTE 0.01 K/uL (0-1); LYMPHOCYTES # (AUTO) 1.7 K/uL (1.0-4.8); LYMPHOCYTES % (AUTO) 23.4 % (21.0-51.0); MEAN CORPUSCULAR HEMOGLOBIN 28.6 pg (27.0-33.0); MEAN CORPUSCULAR HGB CONC 32.3 g/dL (32.0-36.0); MEAN CORPUSCULAR VOLUME 88.7 fL (79-99); MONOCYTES # (AUTO) 0.6 K/uL (0.1-1.0); MONOCYTES % (AUTO) 8.7 % (3.0-13.0); NEUTROPHILS # (AUTO) 4.6 K/uL (1.8-7.7); NEUTROPHILS % (AUTO) 63.1 % (40.0-77.0); PLATELET COUNT (AUTO) 191 K/uL (130-400); RED BLOOD CELL COUNT(AUTO) 4.26 MIL/uL (4.00-5.50); RED CELL DISTRIBUTION WIDTH 18.1 % (11.0-15.5); WHITE BLOOD COUNT (AUTO) 7.2 K/uL (4.8-10.8)
--- NOTE | 2024-06-28 10:06 | HMCIMG ---
PORTABLE CHEST RADIOGRAPH INDICATION: UPPER BACK PAIN COMPARISON: 03/17/2024 FINDINGS: Heart size is normal. The pulmonary vascularity and serge appear normal. Both costophrenic angles are blunted with subjacent linear opacities, but no evidence for consolidation. No pneumothorax detected. IMPRESSION: Small right greater than left pleural effusions with subjacent passive atelectasis.
[2024-06-28 10:07] LABS: INR 1.37 (0.85-1.15); PROTHROMBIN TIME 14.1 SEC (9.6-11.6)
[2024-06-28 10:25] LABS: B-TYPE NATRIURETIC PEPTIDE 1240 pg/mL (0-100); POTASSIUM 4.7 mmol/L (3.5-5.1)
[2024-06-28] MEDS: acetaMINOPHEN 500 MG TABLET PO ONE (12:55)
[2024-06-28] MEDS: ondanSETRON 4MG TABLET PO ONE (12:55)
[2024-06-28] MEDS: ORPHENADRINE 60MG/2ML IM ONE (12:56)
[2024-06-28 12:57] VITALS: BP 107/42; PULSE 75; RESP 22; TEMP 97.8; O2SAT 96
[2024-06-28] MEDS ORDERED: METH-662 PO (13:47)
[2024-06-28] MEDS ORDERED: ACET-66 PO (13:47)
--- NOTE | 2024-06-28 13:47 | ERN ---
General Chief Complaint: Back Pain-No Injury Stated Complaint: BACK PAIN Time Seen by MD: 08:57 Source: patient History of Present Illness Initial Comments Patient is a 58-year-old female coming in to be evaluated for right scapular pain. Patient states that the pain began earlier today she also states that the pain is exacerbated with movement. Movement include elevation and abduction of shoulder. Allergies: Coded Allergies: Penicillins (Verified Allergy, Unknown, 11/21/19) Home Meds Active Scripts Albuterol Sulfate (Ventolin Hfa/Proventil Hfa/Proair Hfa) 90 Mcg Puff, 2 PUFF IH Q4H for WHEEZING, #1 INHALER 0 Refills Prov:SOLANGE COBURN NP 02/04/24 Levofloxacin (Levofloxacin) 500 Mg Tablet, 1 TAB PO QODAY for 10 Days, #5 TAB 0 Refills Prov:SOLANGE COBURN NP 02/04/24 Molnupiravir (Molnupiravir (Eua)) 200 Mg Capsule, 4 CAP PO BID for 5 Days, #40 CAP 0 Refills Prov:SOLANGE COBURN NP 02/04/24 Loperamide HCl (Loperamide) 2 Mg Tablet, 2 MG PO 5X/DAY for with every diarrhea, #12 TAB 0 Refills Prov:JAMES GRAHAM MD 06/22/23 Ondansetron (Ondansetron Odt) 4 Mg Tab.rapdis, 4 MG PO Q6H for nausea, #10 TAB 0 Refills Prov:JAMES GRAHAM MD 06/22/23 Ciprofloxacin HCl (Cipro) 750 Mg Tab, 750 MG PO BID for 3 Days, #6 TAB 0 Refills Prov:JAMES GRAHAM MD 06/22/23 Reported Medications Insulin Glargine,Hum.rec.anlog (Lantus) 100 Units/Ml Inj, 36 UNITS SQ ACBKFST, ML 11/22/19 Lisinopril (Lisinopril) 10 Mg Tablet, 10 MG PO HS, TAB 11/22/19 Metoprolol Tartrate (Metoprolol Tartrate) 25 Mg Tablet, 25 MG PO BID, TAB 11/22/19 Pravastatin Sodium (Pravachol) 20 Mg Tablet, 20 MG PO HS, TAB 11/22/19 Amlodipine Besylate (Norvasc) 10 Mg Tablet, 10 MG PO HS, TAB 11/22/19 Past Medical History Past Medical History: Diabetes-Type II, High Cholesterol, Heart Disease, Hypertension, Renal Failure, TIA Past Surgical History: Other Surgical History Other: DIOR HD FISTULA/GRAFT Female( History) History: Not Applicable ROS Dictation CONSTITUTIONAL: No chills, no fever, no weakness, no diaphoresis, no malaise. HEAD/FACE: No signs of trauma. EENT: No eye pain, no blurred vision, no tearing, no double vision, no ear pain, no ear discharge, no nose pain, no nasal congestion, no throat pain, no throat swelling, no mouth pain. RESPIRATORY: No cough, no orthopnea, no SOB, no stridor, no wheezing. CARDIOVASCULAR: No chest pain, no edema, no palpitations, no syncope. GASTROINTESTINAL/ABDOMINAL: No abdominal pain, no constipation, no diarrhea, no nausea, no vomiting. GENITOURINARY: No abnormal discharge, no dysuria, no frequent urination, no hematuria. No complaints of pain in the genitals. MUSCULOSKELETAL: back pain, no gout, no joint pain, no joint swelling, no muscle pain, no muscle stiffness, no neck pain. INTEGUMENTARY: No change in color, no change in hair/nails, no dryness, no lesion, no lumps, no rash. NEUROLOGICAL/PSYCH: No anxiety, not depressed, no emotional problem, no headache, no numbness, no pre-existing deficit, no history of seizures, no tremors, no weakness. HEMATOLOGIC/LYMPHATIC: Not anemic, no history of blood clots, no apparent bleeding, no bruising, glands not swollen. All Systems Negative, Except as Noted. Physical Exam Physical Exam Dictation VITAL SIGNS: Reviewed. GENERAL APPEARANCE: Alert, oriented x3, no acute distress, obese. HEAD AND FACE: Non-traumatic. EYES: PERRL, pink conjunctivas, eyelid no trauma, anterior chamber clear. EARS: Pinnas intact and no signs of trauma or erythema. Ear canals clear and no discharge. TMs no erythema. NOSE: No discharge, no bleeding. OROPHARYNX: Mouth normal, teeth no caries, tongue pink. Pharynx clear, no erythema. Tonsils no exudates, no abscesses noted. Mucous membrane moist. NECK: Supple, non-tender, no thyromegaly, no masses, no JVD, no bruits. BREAST: Deferred. CHEST: No tenderness, no crepitus, no paradoxical movement, no retractions. LUNGS: Clear, well-ventilated, symmetric, no rales, no wheezing, no rhonchi, no stridor, good breath sounds bilaterally. HEART: Regular rate, regular rhythm, no murmur, no gallops. VASCULAR: No peripheral edema. ABDOMEN: Soft, positive bowel sounds, nondistended, no guarding, nontender, no rebound, no masses no hepatomegaly, no splenomegaly, no Quiñonez's sign, no hernias. RECTAL: Deferred. GENITAL: Deferred. NEUROLOGICAL: Normal speech, gross motor function intact, gross sensory function intact. MUSCULOSKELETAL: Neck nontender, full range of motion, back shoe operator, full range of motion. Back subscapular pain on palpation, EXTREMITIES: Nontender, full range of motion. SKIN: Color pink, dry, no turgor, no rash, no lacerations, no abrasions, no contusions. LYMPHATICS: Deferred. Results Laboratory and Microbiology Lab and Micro Result Laboratory Tests Test 06/28/24 09:41 White Blood Count 7.2 K/uL (4.8-10.8) Red Blood Count 4.26 MIL/uL (4.00-5.50) Hemoglobin 12.2 g/dL (12.0-16.0) Hematocrit 37.8 % (36-48) Mean Corpuscular Volume 88.7 fL (79-99) Mean Corpuscular Hemoglobin 28.6 pg (27.0-33.0) Mean Corpuscular Hemoglobin Concent 32.3 g/dL (32.0-36.0) Red Cell Distribution Width 18.1 % (11.0-15.5) H Platelet Count 191 K/uL (130-400) Mean Platelet Volume 9.7 fL (7.5-10.5) Immature Granulocyte % (Auto) 0.1 % (0-1) Neutrophils (%) (Auto) 63.1 % (40.0-77.0) Lymphocytes (%) (Auto) 23.4 % (21.0-51.0) Monocytes (%) (Auto) 8.7 % (3.0-13.0) Eosinophils (%) (Auto) 3.5 % (0.0-8.0) Basophils (%) (Auto) 1.2 % (0.0-5.0) Neutrophils # (Auto) 4.6 K/uL (1.8-7.7) Lymphocytes # (Auto) 1.7 K/uL (1.0-4.8) Monocytes # (Auto) 0.6 K/uL (0.1-1.0) Eosinophils # (Auto) 0.25 K/uL (0.00-0.70) Basophils # (Auto) 0.09 K/uL (0.00-0.20) Absolute Immature Granulocyte (auto 0.01 K/uL (0-1) Nucleated Red Blood Cells 0.0 % (0.0-0.19) Red Blood Cell Morphology See comments Prothrombin Time 14.1 SEC (9.6-11.6) H Prothromb Time International Ratio 1.37 (0.85-1.15) H Activated Partial Thromboplast Time 29.0 SEC (26.3-35.5) Sodium Level 138 mmol/L (136-145) Potassium Level 4.7 mmol/L (3.5-5.1) Chloride Level 98 mmol/L (101-111) L Carbon Dioxide Level 29 mmol/L (21-32) Blood Urea Nitrogen 18 mg/dL (7-18) Creatinine 6.0 mg/dL (0.5-1.0) H Glomerular Filtration Rate Calc 8 mL/min (>90) Random Glucose 124 mg/dL (70-105) H Total Calcium 10.2 mg/dL (8.5-10.1) H Magnesium Level 2.00 mg/dL (1.80-2.40) Total Creatine Kinase 26 U/L (21-232) # Troponin I High Sensitivity 10 ng/L (4-50) B-Type Natriuretic Peptide 1240 pg/mL (0-100) H Labs Reviewed?: Yes EKG/XRAY/US/CT/MRI EKG Comment [id number] time 9:21 a.m. Ventricular rate 81 Sinus rhythm [place] [address] wave elevation or depression X-RAY Comment IMAGING REPORT Signed PATIENT: CLYDE GAMBOA MR#: [id number] : 1965 SEX: F AGE: 58 LOCATION: [facility] ORDER [id number] STATUS: REG ER REPORT#: [id number] SERVICE [id number] REASON: UPPER BACK PAIN ORDERING PHYSICIAN: ESAU STEPHENS MD PROCEDURE: CXR1VW - CHEST 1VW PORTABLE CHEST RADIOGRAPH INDICATION: UPPER BACK PAIN COMPARISON: 03/17/2024 FINDINGS: Heart size is normal. The pulmonary vascularity and serge appear normal. Both costophrenic angles are blunted with subjacent linear opacities, but no evidence for consolidation. No pneumothorax detected. IMPRESSION: Small right greater than left pleural effusions with subjacent passive atelectasis. DICTATED BY: RADHA CURRAN MD DATE: 06/28/24 1003 ELECTRONICALLY SIGNED BY: RADHA CURRAN MD DATE: 06/28/24 1006 MDM MDM: Differential diagnosis: Subscapular pain, history of end-stage renal disease on dialysis, history of pleural effusion, Rationale: Tests considered and ordered secondary to shared decision making include: labs, ECG and radiology Previous outside records reviewed: Old ER visits. Patient is a 58-year-old female coming in to be evaluated for left subscapular pain. On physical exam there is tenderness to palpation of the left subscapular area. Patient received Norflex as well as Tylenol states her pain subsided. Patient will be discharged in stable condition. Patient states he was pending dialysis which she will follow up immediately upon discharging. Throughout ER visit patient has been stable. ED Course Orders Procedure Category Date Status Time Cbc With Differential LAB 06/28/24 Complete 08:57 Prothrombin Time With LAB 06/28/24 Complete INR 08:57 B-Type Natriuretic LAB 06/28/24 Complete Peptide 08:57 Chest 1vw RAD 06/28/24 Resulted 08:57 12 Lead Ekg Tracing- EKG 06/28/24 Resulted Technical 08:57 Magnesium LAB 06/28/24 Complete 08:57 Creatine Kinase, Total LAB 06/28/24 Complete 08:57 Troponin I High LAB 06/28/24 Complete Sensitivity 08:57 Urinalysis Profile LAB 06/28/24 Logged 08:57 Partial LAB 06/28/24 Complete Thromboplastin Time 08:57 Basic Metabolic Panel LAB 06/28/24 Complete 08:57 Ondansetron 4mg PHA 06/28/24 Complete Tablet (Zofran 4mg 13:00 Orphenadrine Citrate PHA 06/28/24 Complete (Norflex) 13:00 Acetaminophen 500mg PHA 06/28/24 Complete Tab (Tylenol 500mg T 13:00 Current Medications Medications (Trade) Dose Ordered Sig/Gareth Route PRN Reason Start Time Stop Time Status Last Admin Dose Admin Acetaminophen (TYLenol 500MG TAB) 500 mg ONCE ONCE PO 06/28/24 13:00 06/28/24 13:01 DC 06/28/24 12:55 Ondansetron HCl (zoFRAN 4MG TABLET) 4 mg ONCE ONCE PO 06/28/24 13:00 06/28/24 13:01 DC 06/28/24 12:55 Orphenadrine Citrate (Norflex) 60 mg ONCE ONCE IM 06/28/24 13:00 06/28/24 13:01 DC 06/28/24 12:56 Vital Signs Date Time Temp Pulse Resp B/P (MAP) Pulse Ox O2 Delivery O2 Flow Rate FiO2 06/28/24 12:57 97.9 75 22 107/42 96 Room Air* 0 21 06/28/24 12:00 97.5 91 22 178/76 97 Room Air* 0 21 06/28/24 11:06 97.5 81 20 139/55 95 Room Air* 0 21 06/28/24 08:54 99.0 79 20 161/82 96 0 DX & DISP Disposition: Discharge Departure Impression: Primary Impression: Left subscapular pain Additional Impression: ESRD on hemodialysis Condition: Stable Scripts Acetaminophen (Tylenol) 500 Mg Tab 1 TAB PO Q6HPRN PRN for pain or fever for 5 Days, #30 TAB 0 Refills Prov: ESAU STEPHENS MD 06/28/24 Methocarbamol (Robaxin) 750 Mg Tab 1 TAB PO DAILY for 7 Days, #7 TAB 0 Refills Prov: ESAU STEPHENS MD 06/28/24 Additional Instructions: You have been reviewed in the emergency department at [facility] after presenting with chest pain. After considering your history, your risk factors, your EKG and your blood test troponins, have been found to be at very low risk less than (1 in 100) of having a major adverse cardiac event (like heart attack) in the near future. In the " low risk" group, the risks of doing further tests and treatment as the inpatient outweighs the benefits. In many patients in the low risk group for the test of any sort or unnecessary, however he should discuss this further with his general practitioner who will understand the medical and personal backgrounds better. Because we have never declared you" no risk" we would suggest. 1 returning for medical review if you have further episodes of chest pain/arm pain or other concerning symptoms like dizziness, collapse, palpitations or shortness of breath. 2. Following up with your local doctor who will consider the need for further testing and will also ensure that any modifiable risk factors you may have for heart disease are optimally managed. Patient will be discharged in stable condition at the moment discharge patient states , no chest pain Referrals: SELF,REFERRAL (PCP) DEIRDRE APODACA MD Time of Disposition: 13:45 ESAU STEPHENS MD Jun 28, 2024 13:47
== END 2024-06-28 14:15 | disposition home or self-care (01) ==
LOC: EDH 08:53
DX: M25.511 Pain in right shoulder (principal); I12.0 Hypertensive chronic kidney disease with stage 5 chronic kidney disease or end stage renal disease; E11.22 Type 2 diabetes mellitus with diabetic chronic kidney disease; N18.6 End stage renal disease; E78.00 Pure hypercholesterolemia, unspecified; Z79.899 Other long term (current) drug therapy; Z86.73 Personal history of transient ischemic attack (TIA), and cerebral infarction without residual deficits; Z88.0 Allergy status to penicillin; Z99.2 Dependence on renal dialysis; Z98.890 Other specified postprocedural states
CPT/HCPCS: 99285; 71045; 82550; 83735; 84484; 80048; 83880; 85025; 85610; 85730; 36415; 96372; 93005; Q0162; J2360

== ENCOUNTER 2024-09-15 06:56 | Emergency (ER) | payer MEDICAID ==
[~2024-09-15] VITALS: Ht 160 cm; Wt 81.8 kg
[~2024-09-15 06:56] MED LIST changes: +ACET-66 PO; -CIPR750T17 PO; +CIPR750T90 PO; +METH-662 PO
[2024-09-15 06:58] VITALS: BP 127/82; PULSE 82; RESP 19; TEMP 97.7
[2024-09-15 07:34] LABS: IMMATURE GRANULOCYTE ABSOLUTE 0.02 K/uL (0-1); NUCLEATED RED BLOOD CELLS 0.0 % (0.0-0.19); PLATELET COUNT (AUTO) 205 K/uL (130-400); RED BLOOD CELL COUNT(AUTO) 3.99 MIL/uL (4.00-5.50); RED CELL DISTRIBUTION WIDTH 15.2 % (11.0-15.5); WHITE BLOOD COUNT (AUTO) 7.4 K/uL (4.8-10.8)
[2024-09-15 07:42] LABS: CREATININE 5.5 mg/dL (0.5-1.0); GLOMERULAR FILTR. RATE CALC 9.0 mL/min (>90); GLUCOSE,RANDOM 138.0 mg/dL (70-105); SODIUM SERUM 142.0 mmol/L (136-145); UREA NITROGEN, BLOOD 16.0 mg/dL (7-18)
--- NOTE | 2024-09-15 08:04 | HMCIMG ---
EXAM: CT Abdomen and Pelvis Without IV contrast CLINICAL HISTORY: llq swelling TECHNIQUE: Axial computed tomography images of the abdomen and pelvis without intravenous contrast. CONTRAST: No IV contrast. COMPARISON: None provided. FINDINGS: LUNG BASES: Moderate to large partially loculated right pleural effusion and small partially loculated left pleural effusion. Atelectasis at the lung bases. No pulmonary infiltrates. LIVER: Nodular liver, consistent with cirrhosis. GALLBLADDER AND BILE DUCTS: The gallbladder appears within normal limits. No radioopaque gallstones are seen. No biliary ductal dilatation is evident. PANCREAS: Unremarkable. SPLEEN: Enlarged spleen, measuring 13.5 cm. ADRENAL GLANDS: Unremarkable. KIDNEYS, URETERS, AND BLADDER: No renal or ureteral stones. No hydronephrosis. Bilateral renal atrophy. Thickening of the urinary bladder which may be due to underdistention or cystitis. STOMACH AND BOWEL: No bowel obstruction or inflammation. APPENDIX: No evidence of acute appendicitis on CT examination. PERITONEUM: Small amount of ascites. LYMPH NODES: No lymphadenopathy is evident. REPRODUCTIVE: Unremarkable as visualized. VASCULATURE: Atherosclerotic calcifications in the aorta and its branches. No abdominal aortic aneurysm. BONES: No aggressive appearing osseous lesion. No acute osseous pathology evident. MISCELLANEOUS: There is anasarca noted in the soft tissues. IMPRESSION: 1. Moderate to large partially loculated right pleural effusion and small partially loculated left pleural effusion. Bibasilar atelectasis. 2. Nodular liver, consistent with cirrhosis. Splenomegaly. 3. Small amount of ascites. Anasarca. 4. No renal or ureteral stones. No hydronephrosis. Bilateral renal atrophy. 5. No bowel obstruction or inflammation. 6. Thickening of the urinary bladder which may be due to underdistention or cystitis. /[place]
[2024-09-15] MEDS ORDERED: CIPR-279 PO (08:26)
--- NOTE | 2024-09-15 08:27 | ERN ---
General Chief Complaint: Abdominal Pain Stated Complaint: ABDOMINAL PAIN Time Seen by MD: 07:18 Source: patient History of Present Illness Initial Comments Patient is a 59-year-old female coming in complaining of abdominal distention. Patient states that he has this has been ongoing for a couple of days. She has a history of liver cirrhosis in the diagnosed she also has a history of end- stage renal disease and gets dialyzed. Allergies: Coded Allergies: Penicillins (Verified Allergy, Unknown, 11/21/19) Home Meds Active Scripts Acetaminophen (Tylenol) 500 Mg Tab, 1 TAB PO Q6HPRN PRN for pain or fever for 5 Days, #30 TAB 0 Refills Prov:ESAU STEPHENS MD 06/28/24 Methocarbamol (Robaxin) 750 Mg Tab, 1 TAB PO DAILY for 7 Days, #7 TAB 0 Refills Prov:ESAU STEPHNES MD 06/28/24 Albuterol Sulfate (Ventolin Hfa/Proventil Hfa/Proair Hfa) 90 Mcg Puff, 2 PUFF IH Q4H for WHEEZING, #1 INHALER 0 Refills Prov:SOLANGE COBURN NP 02/04/24 Levofloxacin (Levofloxacin) 500 Mg Tablet, 1 TAB PO QODAY for 10 Days, #5 TAB 0 Refills Prov:SOLANGE COBURN NP 02/04/24 Molnupiravir (Molnupiravir (Eua)) 200 Mg Capsule, 4 CAP PO BID for 5 Days, #40 CAP 0 Refills Prov:SOLANGE COBURN NP 02/04/24 Loperamide HCl (Loperamide) 2 Mg Tablet, 2 MG PO 5X/DAY for with every diarrhea, #12 TAB 0 Refills Prov:JAMES GRAHAM MD 06/22/23 Ondansetron (Ondansetron Odt) 4 Mg Tab.rapdis, 4 MG PO Q6H for nausea, #10 TAB 0 Refills Prov:JAMES GRAHAM MD 06/22/23 Ciprofloxacin HCl (Cipro) 750 Mg Tab, 750 MG PO BID for 3 Days, #6 TAB 0 Refills Prov:JAMES GRAHAM MD 06/22/23 Reported Medications Insulin Glargine,Hum.rec.anlog (Lantus) 100 Units/Ml Inj, 36 UNITS SQ ACBKFST, ML 9/11/20 Lisinopril (Lisinopril) 10 Mg Tablet, 10 MG PO HS, TAB 11/22/19 Metoprolol Tartrate (Metoprolol Tartrate) 25 Mg Tablet, 25 MG PO BID, TAB 11/22/19 Pravastatin Sodium (Pravachol) 20 Mg Tablet, 20 MG PO HS, TAB 11/22/19 Amlodipine Besylate (Norvasc) 10 Mg Tablet, 10 MG PO HS, TAB 11/22/19 Past Medical History Past Medical History: Diabetes-Type II, High Cholesterol, Hypertension, Renal Failure Past Surgical History: None Surgical History Other: DIOR HD FISTULA/GRAFT Female( History) History: Not Applicable ROS Dictation CONSTITUTIONAL: No chills, no fever, no weakness, no diaphoresis, no malaise. HEAD/FACE: No signs of trauma. EENT: No eye pain, no blurred vision, no tearing, no double vision, no ear pain, no ear discharge, no nose pain, no nasal congestion, no throat pain, no throat swelling, no mouth pain. RESPIRATORY: No cough, no orthopnea, no SOB, no stridor, no wheezing. CARDIOVASCULAR: No chest pain, no edema, no palpitations, no syncope. GASTROINTESTINAL/ABDOMINAL: No abdominal pain, no constipation, no diarrhea, no nausea, no vomiting. GENITOURINARY: No abnormal discharge, no dysuria, no frequent urination, no hematuria. No complaints of pain in the genitals. MUSCULOSKELETAL: No back pain, no gout, no joint pain, no joint swelling, no muscle pain, no muscle stiffness, no neck pain. INTEGUMENTARY: No change in color, no change in hair/nails, no dryness, no lesion, no lumps, no rash. NEUROLOGICAL/PSYCH: No anxiety, not depressed, no emotional problem, no headache, no numbness, no pre-existing deficit, no history of seizures, no tremors, no weakness. HEMATOLOGIC/LYMPHATIC: Not anemic, no history of blood clots, no apparent bleeding, no bruising, glands not swollen. All Systems Negative, Except as Noted. Physical Exam Physical Exam Dictation VITAL SIGNS: Reviewed. GENERAL APPEARANCE: Alert, oriented x3, no acute distress, obese. HEAD AND FACE: Non-traumatic. EYES: PERRL, pink conjunctivas, eyelid no trauma, anterior chamber clear. EARS: Pinnas intact and no signs of trauma or erythema. Ear canals clear and no discharge. TMs no erythema. NOSE: No discharge, no bleeding. OROPHARYNX: Mouth normal, teeth no caries, tongue pink. Pharynx clear, no erythema. Tonsils no exudates, no abscesses noted. Mucous membrane moist. NECK: Supple, non-tender, no thyromegaly, no masses, no JVD, no bruits. BREAST: Deferred. CHEST: No tenderness, no crepitus, no paradoxical movement, no retractions. LUNGS: Clear, well-ventilated, symmetric, no rales, no wheezing, no rhonchi, no stridor, good breath sounds bilaterally. HEART: Regular rate, regular rhythm, no murmur, no gallops. VASCULAR: No peripheral edema. ABDOMEN: Soft, positive bowel sounds, distended, no guarding, nontender, no rebound, no masses no hepatomegaly, no splenomegaly, no Quiñonez's sign, no h ernias. RECTAL: Deferred. GENITAL: Deferred. NEUROLOGICAL: Normal speech, gross motor function intact, gross sensory functi on intact. MUSCULOSKELETAL: Neck nontender, full range of motion, back nontender, full range of motion. EXTREMITIES: Nontender, full range of motion. SKIN: Color pink, dry, no turgor, no rash, no lacerations, no abrasions, no contusions. LYMPHATICS: Deferred. Results Laboratory and Microbiology Lab and Micro Result Laboratory Tests Test 09/15/24 07:20 White Blood Count 7.4 K/uL (4.8-10.8) Red Blood Count 3.99 MIL/uL (4.00-5.50) L Hemoglobin 11.8 g/dL (12.0-16.0) L Hematocrit 36.4 % (36-48) Mean Corpuscular Volume 91.2 fL (79-99) Mean Corpuscular Hemoglobin 29.6 pg (27.0-33.0) Mean Corpuscular Hemoglobin Concent 32.4 g/dL (32.0-36.0) Red Cell Distribution Width 15.2 % (11.0-15.5) Platelet Count 205 K/uL (130-400) Mean Platelet Volume 9.8 fL (7.5-10.5) Immature Granulocyte % (Auto) 0.3 % (0-1) Neutrophils (%) (Auto) 59.5 % (40.0-77.0) Lymphocytes (%) (Auto) 25.9 % (21.0-51.0) Monocytes (%) (Auto) 9.7 % (3.0-13.0) Eosinophils (%) (Auto) 3.5 % (0.0-8.0) Basophils (%) (Auto) 1.1 % (0.0-5.0) Neutrophils # (Auto) 4.4 K/uL (1.8-7.7) Lymphocytes # (Auto) 1.9 K/uL (1.0-4.8) Monocytes # (Auto) 0.7 K/uL (0.1-1.0) Eosinophils # (Auto) 0.26 K/uL (0.00-0.70) Basophils # (Auto) 0.08 K/uL (0.00-0.20) Absolute Immature Granulocyte (auto 0.02 K/uL (0-1) Nucleated Red Blood Cells 0.0 % (0.0-0.19) Sodium Level 142 mmol/L (136-145) Potassium Level 3.7 mmol/L (3.5-5.1) Chloride Level 100 mmol/L (101-111) L Carbon Dioxide Level 30 mmol/L (21-32) Blood Urea Nitrogen 16 mg/dL (7-18) Creatinine 5.5 mg/dL (0.5-1.0) H Glomerular Filtration Rate Calc 9 mL/min (>90) Random Glucose 138 mg/dL (70-105) H Total Calcium 10.2 mg/dL (8.5-10.1) H Labs Reviewed?: Yes EKG/XRAY/US/CT/MRI CT Scan Comment IMAGING REPORT Signed PATIENT: CLYDE GAMBOA MR#: [id number] : 1965 SEX: F AGE: 59 LOCATION: ED ORDER 8 STATUS: REG ER REPORT#: [id number] SERVICE 7 REASON: llq swelling ORDERING PHYSICIAN: ESAU STEPHENS MD PROCEDURE: ABD PEL WO - CT ABDOMEN/PELVIS W/O CONTRAST EXAM: CT Abdomen and Pelvis Without IV contrast CLINICAL HISTORY: llq swelling TECHNIQUE: Axial computed tomography images of the abdomen and pelvis without intravenous contrast. CONTRAST: No IV contrast. COMPARISON: None provided. FINDINGS: LUNG BASES: Moderate to large partially loculated right pleural effusion and small partially loculated left pleural effusion. Atelectasis at the lung bases. No pulmonary infiltrates. LIVER: Nodular liver, consistent with cirrhosis. GALLBLADDER AND BILE DUCTS: The gallbladder appears within normal limits. No radioopaque gallstones are seen. No biliary ductal dilatation is evident. PANCREAS: Unremarkable. SPLEEN: Enlarged spleen, measuring 13.5 cm. ADRENAL GLANDS: Unremarkable. KIDNEYS, URETERS, AND BLADDER: No renal or ureteral stones. No hydronephrosis. Bilateral renal atrophy. Thickening of the urinary bladder which may be due to underdistention or cystitis. STOMACH AND BOWEL: No bowel obstruction or inflammation. APPENDIX: No evidence of acute appendicitis on CT examination. PERITONEUM: Small amount of ascites. LYMPH NODES: No lymphadenopathy is evident. REPRODUCTIVE: Unremarkable as visualized. VASCULATURE: Atherosclerotic calcifications in the aorta and its branches. No abdominal aortic aneurysm. BONES: No aggressive appearing osseous lesion. No acute osseous pathology evident. MISCELLANEOUS: There is anasarca noted in the soft tissues. IMPRESSION: 1. Moderate to large partially loculated right pleural effusion and small partially loculated left pleural effusion. Bibasilar atelectasis. 2. Nodular liver, consistent with cirrhosis. Splenomegaly. 3. Small amount of ascites. Anasarca. 4. No renal or ureteral stones. No hydronephrosis. Bilateral renal atrophy. 5. No bowel obstruction or inflammation. 6. Thickening of the urinary bladder which may be due to underdistention or cystitis. /[place] DICTATED BY: TISHA BARRON MD DATE: 09/15/24901 ELECTRONICALLY SIGNED BY: TISHA BARRON MD DATE: 09/15/24901 [facility] MDM: Differential diagnosis: Ascites, liver cirrhosis, end-stage renal disease on dialysis, pleural effusion, Rationale: Tests considered and ordered secondary to shared decision making include: Previous outside records reviewed: Old ER visits. Risk of complication and/or morbidity or mortality of patient management: None Medications-Per medication reconciliation Need for hospitalization: Patient does not meet criteria for hospitalization. Patient is a 59-year-old female coming in complaining of abdominal distension imaging studies did not disclose acute findings mild ascites cystitis discharged stable condition with a diagnosis ascites secondary to liver cirrhosis and cysti tis. Also advised her appropriate follow up with PCP and to continue dialysis as scheduled already. Throughout ER visit patient has been stable ED Course Orders Procedure Category Date Status Time Cbc With Differential LAB 09/15/24 Complete 07:18 Urinalysis Profile LAB 09/15/24 Logged 07:18 Basic Metabolic Panel LAB 09/15/24 Complete 07:18 Ct Abdomen/Pelvis W/O CT 09/15/24 Resulted Contrast 07:18 Vital Signs Date Time Temp Pulse Resp B/P (MAP) Pulse Ox O2 Delivery O2 Flow Rate FiO2 09/15/24 06:58 97.7 82 19 127/82 99 Room Air 0 DX & DISP Disposition: Discharge Departure Impression: Primary Impression: ESRD on hemodialysis Additional Impressions: Pleural effusion, Ascites, Cystitis Condition: Stable Scripts Ciprofloxacin HCl (Cipro) 250 Mg Tablet 1 TAB PO BID for 7 Days, #14 TAB 0 Refills Prov: ESAU STEPHENS MD 09/15/24 Additional Instructions: FOLLOW-UP WITH PRIMARY CARE PROVIDER IN 1 TO 2 DAYS. TAKE MEDICATIONS DIRECTED HERE IN THE EMERGENCY ROOM. OKAY TO CONTINUE HOME MEDICATIONS UNLESS OTHERWISE DISCUSSED DURING YOUR VISIT IN THE EMERGENCY ROOM TODAY. RETURN TO YOUR NEAREST EMERGENCY ROOM IF SYMPTOMS WORSEN OR IF THERE IS NO IMPROVEMENT. CALL 911 IF YOU NEED IMMEDIATE ASSISTANCE. TAKE TYLENOL [id number] NEEDED AND IF NO CONTRAINDICATIONS ARE PRESENT. INCREASE ORAL HYDRATION. A WOUND CULTURE OR URINE CULTURE WAS ORDERED HERE IN THE EMERGENCY ROOM DEPARTMENT PLEASE FOLLOW-UP WITH PRIMARY CARE PROVIDER AND ADVISE THEM TO GET REPORTS FROM OUR FACILITY. IF YOU HAD ANY HOLLIE WRAP/SPLINTS THAT WERE APPLIED HERE, PLEASE DO NOT REMOVE THEM UNTIL YOU SEE YOUR PRIMARY CARE OR SPECIALTY. Referrals: Referrals: SELF,REFERRAL (PCP) DEIRDRE APODACA MD Time of Disposition: 08: ESAU STEPHENS MD Sep 15, 2024 08:26
[2024-09-19] MEDS ORDERED: METO5TAB2 PO (00:18)
[2024-09-19] MEDS ORDERED: INSU3INS3 SQ (00:18)
[2024-09-19] MEDS ORDERED: ASPI-1443 PO (00:18)
[2024-09-19] MEDS ORDERED: MIDO10TA3 PO (00:18)
[2024-09-19] MEDS ORDERED: FOLI1TAB85 PO (00:18)
[2024-09-19] MEDS ORDERED: PRAV20TA59 PO (00:18)
[2024-09-19] MEDS ORDERED: ALPR0.5T8 PO (00:18)
== END 2024-09-15 09:25 | disposition home or self-care (01) ==
LOC: EDH 06:56
DX: I12.0 Hypertensive chronic kidney disease with stage 5 chronic kidney disease or end stage renal disease (principal); E11.22 Type 2 diabetes mellitus with diabetic chronic kidney disease; N18.6 End stage renal disease; J90 Pleural effusion, not elsewhere classified; R18.8 Other ascites; E78.00 Pure hypercholesterolemia, unspecified; N30.90 Cystitis, unspecified without hematuria; Z79.899 Other long term (current) drug therapy; Z88.0 Allergy status to penicillin; Z99.2 Dependence on renal dialysis
CPT/HCPCS: 36415; 74176; 80048; 85025; 99284

== ENCOUNTER 2024-09-25 12:45 | Emergency (ER) | payer MEDICAID ==
[~2024-09-25] VITALS: Ht 160 cm; Wt 79.4 kg
[~2024-09-25 12:45] MED LIST changes: -ACET-66 PO; -ALBUHFA IH; +ALPR0.5T8 PO; -AMLO-915 PO; +ASPI-1443 PO; +BRIM5DRO OP; -CIPR750T90 PO; +FOLI1TAB85 PO; -INSLAN SQ; +INSU3INS3 SQ; +LATA2.5D7 OP; -LEVO-70 PO; -LISI10TA24 PO; -LOPE2TAB26 PO; -METH-662 PO; +METO5TAB2 PO; +MIDO10TA3 PO; -MOLN200C PO; -ONDA-243 PO; -PRAV20TA PO; +PRAV20TA59 PO
--- NOTE | 2024-09-25 12:52 | ERN ---
ED Note History of Present Illness Stated Complaint: BACK PAIN Chief Complaint: Back Pain-No Injury Time Seen by MD: 12:47 Dictation: PATIENT IS A 59-YEAR-OLD FEMALE HERE WITH COMPLAINTS OF SHORTNESS A BREATH/CHEST PAIN BACK PAIN AND GENERALIZED BODY WEAKNESS. SHE DENIES FEVER CHILLS NAUSEA VOMITING. STATES SHE HAS A HISTORY OF END-STAGE RENAL DISEASE PATIENT HAD DR. PERKINS. HEMODIALYSIS Monday AND MONDAY, STATES SHE WENT TODAY AND HEMODIALYSIS WAS COMPLETED. SHE STATES SHE IS HERE BECAUSE SHE HAD A PLEURAL EFFUSION LA[place] [facility] [place] Allergies: Coded Allergies: Penicillins (Verified Allergy, Unknown, 11/21/19) Home Meds Active Scripts Acetaminophen with Codeine (Acetaminophen-Cod #3 Tablet) 300 Mg-30 Mg Tablet, 1 TAB PO Q4H PRN for MODERATE TO SEVERE PAIN, #12 TAB 0 Refills Prov:SOLANGE COBURN OXIDATION OPERATOR 09/25/24 Reported Medications Latanoprost (Latanoprost) 0.005 % Drops, 1 DROP OP HS, ML 0 Refills 09/19/24 Brimonidine Tartrate/Timolol (Combigan Eye Drops) 0.2 %-0.5 % Drops, 1 DROP OP BID, #10 ML 0 Refills 09/19/24 Aspirin (Aspirin EC) 81 Mg Tablet.dr, 1 TAB PO DAILY 09/19/24 Pravastatin Sodium (Pravastatin Sodium) 20 Mg Tablet, 1 TAB PO HS 09/19/24 Insulin Glargine,Hum.rec.anlog (Lantus Solostar) 100 Unit/Ml (3 Ml) Insuln.pen, 20 UNITS SQ AM 09/19/24 Midodrine HCl (Midodrine HCl) 10 Mg Tablet, 10 TAB PO QMOWEFR 09/19/24 Vit B Cmplx 3/FA/Vit C/Biotin (Alma-Bri Rx Tablet) 1 Mg-60 Mg-300 Mcg Tablet, 1 TAB PO DAILY 09/19/24 Metoclopramide HCl (Metoclopramide HCl) 5 Mg Tablet, 1 TAB PO TID 09/19/24 Alprazolam (Alprazolam) 0.5 Mg Tablet, 1 TAB PO DAILY PRN for anxiety attack 09/19/24 Metoprolol Tartrate (Metoprolol Tartrate) 25 Mg Tablet, 25 MG PO BID, TAB 11/22/19 Discontinued Reported Medications Insulin Glargine,Hum.rec.anlog (Lantus) 100 Units/Ml Inj, 36 UNITS SQ ACBKFST, ML 11/22/19 Lisinopril (Lisinopril) 10 Mg Tablet, 10 MG PO HS, TAB 11/22/19 Pravastatin Sodium (Pravachol) 20 Mg Tablet, 20 MG PO HS, TAB 11/22/19 Amlodipine Besylate (Norvasc) 10 Mg Tablet, 10 MG PO HS, TAB 11/22/19 Discontinued Scripts Ciprofloxacin HCl (Cipro) 250 Mg Tablet, 1 TAB PO BID for 7 Days, #14 TAB 0 Refills Prov:ESAU STEPHENS MD 09/15/24 Acetaminophen (Tylenol) 500 Mg Tab, 1 TAB PO Q6HPRN PRN for pain or fever for 5 Days, #30 TAB 0 Refills Prov:ESAU STEPHENS MD 06/28/24 Methocarbamol (Robaxin) 750 Mg Tab, 1 TAB PO DAILY for 7 Days, #7 TAB 0 Refills Prov:ESAU STEPHENS MD 06/28/24 Albuterol Sulfate (Ventolin Hfa/Proventil Hfa/Proair Hfa) 90 Mcg Puff, 2 PUFF IH Q4H for WHEEZING, #1 INHALER 0 Refills Prov:SOLANGE COBURN NP 02/04/24 Levofloxacin (Levofloxacin) 500 Mg Tablet, 1 TAB PO QODAY for 10 Days, #5 TAB 0 Refills Prov:SOLANGE COBURN NP 02/04/24 Molnupiravir (Molnupiravir (Eua)) 200 Mg Capsule, 4 CAP PO BID for 5 Days, #40 CAP 0 Refills Prov:SOLANGE COBURN NP 02/04/24 Loperamide HCl (Loperamide) 2 Mg Tablet, 2 MG PO 5X/DAY for with every diarrhea, #12 TAB 0 Refills Prov:JAMES GRAHAM MD 06/22/23 Ondansetron (Ondansetron Odt) 4 Mg Tab.rapdis, 4 MG PO Q6H for nausea, #10 TAB 0 Refills Prov:JAMES GRAHAM MD 06/22/23 Ciprofloxacin HCl (Cipro) 750 Mg Tab, 750 MG PO BID for 3 Days, #6 TAB 0 Refills Prov:JAMES GRAHAM MD 06/22/23 Past Medical History Past Medical History: Diabetes-Type II, High Cholesterol, Hypertension, Renal Failure Additional Past Medical Hx: LEGALLY BLIND Surgical History: None Surgical History Other: DIOR HD FISTULA/GRAFT History: Not Applicable RN Note Reviewed/Agreed w/PFSH: Yes Review of System Dictation CONSTITUTIONAL: NEGATIVE EXCEPT FOR HPI HEAD/FACE: NEGATIVE EXCEPT FOR HPI EENT: NEGATIVE EXCEPT FOR HPI RESPIRATORY: NEGATIVE EXCEPT FOR HPI CHEST PAIN/SOB GASTROINTESTINAL/ABDOMINAL: NEGATIVE EXCEPT FOR HPI GENITOURINARY: NEGATIVE EXCEPT FOR HPI MUSCULOSKELETAL: NEGATIVE EXCEPT FOR HPI BACK PAIN INTEGUMENTARY: NEGATIVE EXCEPT FOR HPI NEUROLOGICAL/PSYCH: NEGATIVE EXCEPT FOR HPI HEMATOLOGIC/LYMPHATIC: NEGATIVE EXCEPT FOR HPI ALL SYSTEMS NEGATIVE, EXCEPT NOTED ABOVE. 13 POINT REVIEW OF SYSTEMS ASSESSED AND ALL NEGATIVE EXCEPT FOR ABOVE. Initial Vital Sign VS Vital Signs Date Time Temp Pulse Resp B/P (MAP) Pulse Ox O2 Delivery O2 Flow Rate FiO2 09/25/24 12:46 97.9 79 16 107/57 97 Room Air 09/25/24 13:41 0 21 Physical Exam Dictation VITAL SIGNS REVIEWED GENERAL APPEARANCE: ALERT, ORIENTED X 3, MILD ACUTE DISTRESS, WELL DEVELOPED, NOURISHED. HEAD AND FACE: NON-TRAUMATIC. EYES: PERRL, PINK CONJUNCTIVAS, EYELID NO TRAUMA, ANTERIOR CHAMBER WITH ARCUS SENILIS. EARS: PINNAS INTACT AND NO SIGNS OF TRAUMA OR ERYTHEMA EAR CANALS CLEAR AND NO DISCHARGE TM NO ERYTHEMA NOSE: NO DISCHARGE, NO BLEEDING. OROPHARYNX: MOUTH NORMAL, TONGUE PINK, PHARYNX CLEAR,NO ERYTHEMA, TONSILS NO EXUDATES, NO ABSCESSES NOTED, MUCOUS MEMBRANE MOIST NECK: SUPPLE, NON-TENDER, NO THYROMEGALY, NO MASSES, NO JVD, NO BRUITS BREAST:DEFERRED CHEST:NO TENDERNESS, NO CREPITUS, NO PARADOXICAL MOVEMENT, NO RETRACTIONS LUNGS:CLEAR, WELL-VENTILATED, SYMMETRIC, NO RALES, NO WHEEZING, NO RHONCHI, NO STRIDOR, GOOD BREATH SOUNDS BILATERALLY HEART: REGULAR RATE, REGULAR RHYTHM, NO MURMUR, NO GALLOPS VASCULAR: NO PERIPHERAL EDEMA, LEFT ARM FISTULA WITH GOOD THRILL AND BRUIT. ABDOMEN: SOFT, POSITIVE BOWEL SOUNDS, NONDISTENDED, NO GUARDING, NONTENDER, NO REBOUND, NO MASSES NO HEPATOMEGALY, NO SPLENOMEGALY, NO CHOE'S SIGN, NO HERNIAS. RECTAL: DEFERRED GENITAL: DEFERRED NEUROLOGICAL: NORMAL SPEECH, MOTOR FUNCTION INTACT, SENSORY FUNCTION INTACT MUSCULOSKELETAL: NECK NONTENDER, FULL RANGE OF MOTION, BACK NONTENDER, FULL RANGE OF MOTION, EXTREMITIES: NONTENDER, FULL RANGE OF MOTION SKIN: COLOR PINK, DRY, NO TURGOR, NO RASH, NO LACERATIONS, NO ABRASIONS, NO CONTUSIONS. LYMPHATIC: DEFERRED Results (Laboratory/Radiology) Laboratory/Radiology Laboratory Tests Test 09/25/24 14:15 White Blood Count 6.6 K/uL (4.8-10.8) Red Blood Count 4.08 MIL/uL (4.00-5.50) Hemoglobin 12.1 g/dL (12.0-16.0) Hematocrit 37.1 % (36-48) Mean Corpuscular Volume 90.9 fL (79-99) Mean Corpuscular Hemoglobin 29.7 pg (27.0-33.0) Mean Corpuscular Hemoglobin Concent 32.6 g/dL (32.0-36.0) Red Cell Distribution Width 17.3 % (11.0-15.5) H Platelet Count 163 K/uL (130-400) Mean Platelet Volume 9.8 fL (7.5-10.5) Immature Granulocyte % (Auto) 0.2 % (0-1) Neutrophils (%) (Auto) 70.8 % (40.0-77.0) Lymphocytes (%) (Auto) 16.1 % (21.0-51.0) L Monocytes (%) (Auto) 8.3 % (3.0-13.0) Eosinophils (%) (Auto) 3.5 % (0.0-8.0) Basophils (%) (Auto) 1.1 % (0.0-5.0) Neutrophils # (Auto) 4.7 K/uL (1.8-7.7) Lymphocytes # (Auto) 1.1 K/uL (1.0-4.8) Monocytes # (Auto) 0.6 K/uL (0.1-1.0) Eosinophils # (Auto) 0.23 K/uL (0.00-0.70) Basophils # (Auto) 0.07 K/uL (0.00-0.20) Absolute Immature Granulocyte (auto 0.01 K/uL (0-1) Nucleated Red Blood Cells 0.0 % (0.0-0.19) Sodium Level 139 mmol/L (136-145) Potassium Level 3.3 mmol/L (3.5-5.1) L Chloride Level 97 mmol/L (101-111) L Carbon Dioxide Level 35 mmol/L (21-32) H Blood Urea Nitrogen 9 mg/dL (7-18) Creatinine 3.6 mg/dL (0.5-1.0) H Glomerular Filtration Rate Calc 14 mL/min (>90) Random Glucose 156 mg/dL (70-105) H Total Calcium 9.6 mg/dL (8.5-10.1) Magnesium Level 1.90 mg/dL (1.80-2.40) Troponin I High Sensitivity 30 ng/L (4-50) B-Type Natriuretic Peptide 1240 pg/mL (0-100) H EXAM: CR Chest, 1 View. CLINICAL HISTORY: SHORTNESS A BREATH/CHEST PAIN COMPARISON: Radiograph dated September 20, 2024 FINDINGS: Small to moderate left and moderate to large right bilateral effusions. Dependent airspace disease within the mid to lower right lung, and at the left lung base may reflect atelectasis and/or an infectious/inflammatory process. Heart size is stable. Mild central pulmonary vascular congestion. IMPRESSION: 1. Bilateral pleural effusions, moderate to large on the right and small to moderate on the left 2. Right middle and lower lung and left basilar airspace disease, may reflect atelectasis and/or pneumonia 3. Mild pulmonary vascular congestion /[place] Labs Reviewed?: Yes EKG Comment: EKG SINUS RHYTHM/HEART RATE 75/AXIS NORMAL/T-WAVE FLATTENING V4 V5 ED Course ED Course Orders Procedure Category Date Status Time Cbc With Differential LAB 09/25/24 Complete 12:49 Chest 1vw RAD 09/25/24 Resulted 12:49 12 Lead Ekg Tracing- EKG 09/25/24 Complete Technical 12:49 Magnesium LAB 09/25/24 Complete 12:49 Troponin I High LAB 09/25/24 Complete Sensitivity 12:49 Basic Metabolic Panel LAB 09/25/24 Complete 12:49 B-Type Natriuretic LAB 09/25/24 Complete Peptide 12:49 Morphine 2mg Syg PHA 09/25/24 Complete (Morphine 2mg Syg) 14:00 Ondansetron 4mg Inj PHA 09/25/24 Complete (Zofran 4mg Inj) 14:00 Potassium Chloride PHA 09/25/24 Complete 20meq Er (K-Dur/Klor- 15:00 Current Medications Medications (Trade) Dose Ordered Sig/Gareth Route PRN Reason Start Time Stop Time Status Last Admin Dose Admin Morphine Sulfate (morPHINE 2MG SYG) 2 mg ONCE ONCE IVP 09/25/24 14:00 09/25/24 14:01 DC 09/25/24 14:01 Ondansetron HCl (zoFRAN 4MG INJ) 4 mg ONCE ONCE IVP 09/25/24 14:00 09/25/24 14:01 DC 09/25/24 14:01 Potassium Chloride (K-Dur/Klor-Con 20meq) 20 meq ONCE ONCE PO 09/25/24 15:00 09/25/24 15:01 DC 09/25/24 15:31 Vital Signs Date Time Temp Pulse Resp B/P (MAP) Pulse Ox O2 Delivery O2 Flow Rate FiO2 09/25/24 15:00 98.1 69 14 102/51 99 Room Air* 0 21 09/25/24 13:41 74 14 131/72 99 Room Air* 0 21 09/25/24 12:46 97.9 79 16 107/57 97 Room Air 1520/STATES PAIN IS IMPROVED AFTER TREATMENT WITH MORPHINE. SHE IS AWARE THAT THERE IS NO MEDICAL ADMISSION CRITERIA AT THIS TIME SHE WILL BE TREATED FOR CHRONIC BACK PAIN. TOLD TO FOLLOW UP WITH HER PRIMARY CARE DOCTOR FOR MANAGEMENT.1540/ 1540/patient also requested treatment for gastritis since patient was admitted on her last visit for gas rhinitis and however had no pain meds on discharged home. I we will send patient Carafate and omeprazole told her to follow a bland diet and see her primary care doctor for management HEART Score Response (Comments) Value EKG: Repolarization changes 1 Age: > 65yrs (+2) 2 Risk Factors: 3+ risk factors (+2) 2 Initial Troponin: Normal limit (0) 0 Total 5 Medical Decision Making MDM MDM: DIFFERENTIAL DIAGNOSIS: ACS/AMI/FLUID OVERLOAD/CHF/ELECTROLYTE IMBALANCE/DEHYDRATION/CHRONIC BACK PAIN RATIONALE: TESTS CONSIDERED AND ORDERED SECONDARY TO SHARED DECISION MAKING INCLUDE: LABS/RADIOLOGY/EKG PREVIOUS OUTSIDE RECORDS REVIEWED: OLD ER VISITS. RISK OF COMPLICATION AND/OR MORBIDITY OR MORTALITY OF PATIENT MANAGEMENT: NONE MEDICATIONS-PER MEDICATION RECONCILIATION NEED FOR HOSPITALIZATION: PATIENT DOES NOT MEET CRITERIA FOR HOSPITALIZATION. NO PATIENT WISHES TO GO HOME AND BE TREATED HOME FOR PAIN MANAGEMENT FOR HER BACK NEED FOR EMERGENCY MAJOR/MINOR SURGERY: NO THERE ARE NO SOCIAL CONCERNS WITH THIS PATIENT. PRESCRIPTION DRUG MANAGEMENT TYLENOL WITH CODEINE PRESCRIPTIONS WILL INCLUDE SYMPTOMATIC CARE PATIENT'S PRIOR EXTERNAL MEDICAL RECORDS FROM OTHER ER VISITS WERE REVIEWED BY ME INDICATED. PRIOR TESTING AND RESULTS FROM PREVIOUS VISITS WERE REVIEWED. PRIOR TESTS WERE TAKEN INTO ACCOUNT WITH MEDICAL DECISION MAKING AND RESOURCE UTILIZATION, INDEPENDENT HISTORIAN/HISTORIANS WERE USED TO OBTAIN COMPLETE MEDICAL HISTORY. I INDEPENDENTLY INTERPRETED THE TEST THAT WERE PERFORMED, RESULTS WERE REVIEWED BY ME AND CONSIDERED FINDINGS ON RADIOLOGY IF ORDERED. MEDICAL MANAGEMENT AND EXAMINATION INTERPRETATION DISCUSSIONS WERE HAD BY ME WITH OTHER QUALIFIED HEALTHCARE PROFESSIONALS INDICATED FOR THE PATIENT'S CARE. DX & DISP Disposition: Discharge Departure Impression: Primary Impression: Acute low back pain Additional Impressions: ESRD needing dialysis, Anemia, chronic renal failure, Hypokalemia Condition: Stable Scripts Sucralfate (Carafate) 1 Gram Tablet 1 GM PO ACHS for 10 Days, #40 TAB Prov: SOLANGE COBURN NP 09/25/24 Omeprazole (Omeprazole) 40 Mg Capsule.dr 1 CAP PO DAILY for 30 Days, #30 CAP 0 Refills Prov: SOLANGE COBURN NP 09/25/24 Acetaminophen with Codeine (Acetaminophen-Cod #3 Tablet) 300 Mg-30 Mg Tablet 1 TAB PO Q4H PRN for MODERATE TO SEVERE PAIN, #12 TAB 0 Refills Prov: SOLANGE COBURN NP 09/25/24 Additional Instructions: Follow-up with primary care provider in 1 to 2 days. Take medications as directed here in the emergency room. Okay to continue home medications unless otherwise discussed during your visit in the emergency room today. Return to your nearest emergency room if symptoms worsen or if there is no improvement. Call 911 if you need immediate assistance. Take Tylenol or Motrin [id number] as needed and if no contraindications are present. Increase oral hydration. A wound culture or urine culture was ordered here in the emergency room department please follow-up with primary care provider and advise them to get repeat ports from our facility. If you had any Toan wrap/splints that were applied here, please do not remove them until you see your primary care or specialty. Continue all medications and treatments at home. Take Tylenol with codeine for severe pain and see your primary care doctor for follow up on your back pain. Referrals: SELF,REFERRAL (PCP) Time of Disposition: 15:22 I have reviewed the case, and I agree with, Diagnosis and Plan SOLANGE COBURN NP Sep 25, 2024 12:52
--- NOTE | 2024-09-25 13:31 | HMCIMG ---
EXAM: CR Chest, 1 View. CLINICAL HISTORY: SHORTNESS A BREATH/CHEST PAIN COMPARISON: Radiograph dated September 20, 2024 FINDINGS: Small to moderate left and moderate to large right bilateral effusions. Dependent airspace disease within the mid to lower right lung, and at the left lung base may reflect atelectasis and/or an infectious/inflammatory process. Heart size is stable. Mild central pulmonary vascular congestion. IMPRESSION: 1. Bilateral pleural effusions, moderate to large on the right and small to moderate on the left 2. Right middle and lower lung and left basilar airspace disease, may reflect atelectasis and/or pneumonia 3. Mild pulmonary vascular congestion /[place]
[2024-09-25 14:25] LABS: IMMATURE GRANULOCYTE ABSOLUTE 0.01 K/uL (0-1); NUCLEATED RED BLOOD CELLS 0.0 % (0.0-0.19); PLATELET COUNT (AUTO) 163 K/uL (130-400); RED BLOOD CELL COUNT(AUTO) 4.08 MIL/uL (4.00-5.50); RED CELL DISTRIBUTION WIDTH 17.3 % (11.0-15.5); WHITE BLOOD COUNT (AUTO) 6.6 K/uL (4.8-10.8)
[2024-09-25 14:34] LABS: CREATININE 3.6 mg/dL (0.5-1.0); GLOMERULAR FILTR. RATE CALC 14.0 mL/min (>90); GLUCOSE,RANDOM 156.0 mg/dL (70-105); SODIUM SERUM 139.0 mmol/L (136-145); UREA NITROGEN, BLOOD 9.0 mg/dL (7-18)
--- NOTE | 2024-09-25 15:03 | EKG ---
[facility] Test Date: 2024-09-25 Test Time: 12:56:15 Pat Name: CLYDE GAMBOA Department: ED Room: Gender: F Icing Coater: [id number] : [id number] Requested By: SOLANGE COBURN Order Number: [id number] Reading MD: Isak Ramirez Measurements Intervals [place] Rate: 75 P: 15 MO: 180 QRS: 5 QRSD: 93 T: 0 QT: 386 QTc: 433 Interpretive Statements Sinus rhythm Low voltage, precordial leads Nonspecific T abnormalities, lateral leads Compared to ECG 09/18/2024 18:44:51 T-wave abnormality now present Electronically Signed On 09-25-2024 23:45:09 CDT by Isak Ramirez Please click the below link to view image of tracing.
[2024-09-25] MEDS ORDERED: ACET-2079 PO (15:23)
[2024-09-25] MEDS: PoTASSium chloRIDE 20MEQ ER 20 MEQ ERTAB PO ONE (15:31)
[2024-09-25] MEDS ORDERED: SUCR1TAB28 PO (15:45)
[2024-09-25] MEDS ORDERED: OMEP40CA21 PO (15:45)
[2024-09-25 16:15] VITALS: BP 105/56; PULSE 71; RESP 15; TEMP 98; O2SAT 98
== END 2024-09-25 16:25 | disposition home or self-care (01) ==
LOC: EDH 12:45
DX: I12.0 Hypertensive chronic kidney disease with stage 5 chronic kidney disease or end stage renal disease (principal); E11.22 Type 2 diabetes mellitus with diabetic chronic kidney disease; N18.6 End stage renal disease; M54.50 Low back pain, unspecified; D63.1 Anemia in chronic kidney disease; E78.00 Pure hypercholesterolemia, unspecified; E87.6 Hypokalemia; Z79.82 Long term (current) use of aspirin; Z99.2 Dependence on renal dialysis; Z79.899 Other long term (current) drug therapy; Z88.0 Allergy status to penicillin
CPT/HCPCS: 99285; 96374; 71045; 96375; 83735; 84484; 80048; 83880; 85025; 36415; 93005; J2270; J2405